=== PATIENT | female | born 1995 | race Caucasian/White ===

== ENCOUNTER 2018-09-20 08:24 | Inpatient (IN) ==
[2018-09-20] MEDS ORDERED: NS 1,000 ML IV ONE ×2 (08:51→10:33)
[2018-09-20] MEDS ORDERED: HUMULIN R IV ONE (08:52)
[2018-09-20 09:05] LABS: BE -11.6 mmoll (-3.0-3.0); HCO3-(ACT) 14.7 mmoll (20.0-26.0); PCO2(98.6) 36 mmHg (35-45); SAMPLE BLOOD
[2018-09-20 09:07] LABS: ALLEN TEST NO; BLOOD TYPE VENOUS; MODALITY ROOM AIR
[2018-09-20 09:08] LABS: PO2(98.6) 34 mmHg (60-100)
[2018-09-20 09:09] LABS: pH(98.6) 7.23 (7.35-7.45)
[2018-09-20 09:16] LABS: URINE SOURCE CLEAN CATCH
[2018-09-20 09:21] LABS: BASO# 0.06 X1000 (0.0-0.2); BASO% 0.5 % (0.0-0.8); EOS# 1.11 X1000 (0.0-0.7); EOS% 9.7 % (0.0-10.0); HEMATOCRIT 43.2 % (37.0-47.0); IMM GRAN# 0.03 X1000 (0.0-0.04); IMM GRAN% 0.3 % (0.0-0.5); LYMPH# 2.57 X1000 (1.2-3.4); LYMPH% 22.5 % (20.5-51.1); MCHC 32.4 g/dL (33-37); MCV 92.7 FL (81-99); MONO# 0.71 X1000 (0.11-0.59); MONO% 6.2 % (1.7-9.3); MPV 11.2 FL (7.4-10.4); NEUT# 6.93 X1000 (1.4-6.5); NEUT% 60.8 % (42.2-75.2); PLT 398 X1000 (130-400); RBC 4.66 XMIL (4.2-5.4); RDW 12.3 % (11.5-14.5); WBC 11.41 X1000 (4.8-10.8)
--- NOTE | 2018-09-20 09:21 | Diag Imaging Result Doc PS360 ---
EXAM: CHEST-2 VIEWS 09/20/2018 HISTORY: DKA TECHNIQUE: PA and lateral chest COMMENT: There is no evidence of acute cardiac or pulmonary disease. There are no previous studies available for comparison. IMPRESSION: No acute disease. Electronically signed by Gerardo Starr 09/20/2018 9:19 AM
[2018-09-20 09:22] LABS: BILIRUBIN URINE NEGATIVE (NEGATIVE); BLOOD URINE TRACE (NEGATIVE); COLOR STRAW; GLUCOSE URINE >1000 mg/dL (NEGATIVE); KETONE URINE >150 mg/dL (NEGATIVE); LEUKOCYTES URINE NEGATIVE (NEGATIVE); NITRITE URINE NEGATIVE (NEGATIVE); PROTEIN URINE NEGATIVE (NEGATIVE); SP GRAVITY URINE 1.022; TURBIDITY URINE CLEAR (CLEAR); UROBILINOGEN URINE NORMAL (NORMAL)
[2018-09-20 09:24] LABS: UR EPITHELIAL CELLS <10 /HPF (<10); URINE BACTERIA 2+ /HPF; URINE RBC <10 /HPF (<10); URINE WBC <10 /HPF (<10)
[2018-09-20] MEDS ORDERED: ZOFRAN ONE (09:29)
[2018-09-20 09:48] LABS: ALBUMIN 3.9 g/dL (3.5-5.0); CALCIUM 9.9 mg/dL (8.8-10.2); CREATININE 1.2 mg/dL (0.5-0.9); TOTAL BILIRUBIN 0.36 mg/dL (0.20-1.00); TOTAL PROTEIN 7.8 g/dL (6.3-8.3)
[2018-09-20] MEDS ORDERED: ZOFRAN IV ONE (10:33)
--- NOTE | 2018-09-20 10:37 | PROVIDER DOCUMENTATION ---
HPI-General Adult - General Chief Complaint: High Blood Sugar Stated Complaint: SUGAR PROBLEM Time Seen by Provider: 09/20/18 08:46 Source: patient - History of Present Illness -Gen Adult Nature of Presenting Problems: Patient is a 23 yowf who complains of BS > 500 and n/v since Monday. Hx of DM Type 1. Denies abdominal pain or fever. Location of Pain/Injury: reports: none Quality of Pain: reports: none Onset/Duration: reports: 4 days ago Timing: reports: still present Context/Activities at Onset: reports: none Similar Symptoms Previously?: No Review of Systems - Adult - REVIEW OF SYSTEMS - ADULT Constitutional: denies: chills, fever Eyes: reports: no symptoms reported Ears, Nose, Mouth & Throat: reports: no symptoms reported Cardiovascular: reports: no symptoms reported Respiratory: reports: no symptoms reported Gastrointestinal: reports: nausea, vomiting. denies: abdominal pain, diarrhea Genitourinary: reports: other (polyuria) Musculoskeletal: reports: no symptoms reported Integumentary: reports: no symptoms reported Neurological: reports: no symptoms reported Psychiatric: reports: no symptoms reported Endocrine: reports: no symptoms reported Hematologic/Lymphatic: reports: no symptoms reported Allergic/Immunologic: reports: no symptoms reported All Other Systems: Reviewed and Negative Past History - Adult - PAST MEDICAL HISTORY-ADULT Review of Records: reports: Old Records Reviewed, Nursing Assessment Review, Medications Reviewed, Social history reviewed & non-contributory. Major Childhood Illnesses: reports: other (DM Type 1) Cardiovascular: reports: denies history Respiratory: reports: denies history Gastrointestinal: reports: denies history Obstetrical/Gynecological: reports: denies history Genitourinary: reports: denies history Musculoskeletal: reports: denies history Neurological: reports: denies history Psychiatric: reports: denies history Endocrine/Immune: reports: Diabetes Diabetes Type: Type 1 Diabetes controlled by:: Insulin Dependent Other Conditions: reports: denies history - PRIOR SURGERIES/PROCEDURES Surgical/Procedure History: reports: reviewed, not pertinent - FAMILY HISTORY Family History: reviewed, not pertinent - SOCIAL HISTORY Smoking: cigarettes, less than 1 pack/day Physical Exam-General - PHYSICAL EXAM-ADULT Initial Vital Signs Reviewed: Yes - CONSTITUTIONAL General Appearance: moderate distress. negative: lethargic, slow to respond - EYES Eyes: PERRL/EOMI, pink conjunctivae. negative: sclera injected, scleral icterus , sunken eyes - HEAD, EARS, NOSE, MOUTH & THROAT HENMT: normocephalic/atraumatic, moist mucous membranes - NECK Neck: non-tender, full range of motion, supple, normal inspection. negative: lymphadenopathy - RESPIRATORY Respiratory: chest non-tender, lungs clear, normal breath sounds, no pleuratic chest pain, no respiratory distress, no accessory muscle use - CARDIOVASCULAR Cardiovascular: normal peripheral pulses, regular rate, rhythm, no gallop, no murmur - GASTROINTESTINAL (ABDOMEN) Abdominal Exam: normal bowel sounds, soft, no organomegaly, tenderness (Diffuse) . negative: hernia, mass, McBurney's point tenderness - LYMPHATIC Lymphatic: no adenopathy - MUSCULOSKELETAL Back Exam: normal inspection, no CVA tenderness Extremity: normal range of motion, non-tender, normal gait, normal inspection - SKIN Integumentary: normal color, warm/dry. negative: cyanosis, diaphoresis, jaundice, mottled, pallor - NEUROLOGIC Neurologic: grossly normal, no motor/sensory deficits - PSYCHIATRIC Psych/Mental Status: normal mood/affect, normal thought content, normal thought process, oriented x 3 Progress - PLAN OF CARE/RESULTS Progress/Plan/Lab Results: Vital Signs - 8 hr 09/20/18 08:27 Temperature 98.9 F Pulse Rate 122 H Respiratory Rate 18 Blood Pressure 120/61 O2 Sat by Pulse Oximetry 100 Bedside Urine ED: Urine Bedside Start: 09/20/18 09:15 Freq: Status: Active Protocol: Activity Type Activity Date Activity User E-Sign Co-Sign Detail Recorded Client Recorded Date Recorded By Document 09/20/18 09:16 [id number] 09/20/18 09:16 [id number] 09/20/18 09:16 Point of Care [Bedside Point of Care] -Lot # hcg - Results Negative -Control Line Visible? Yes Laboratory Results - last 24 hr 09/20/18 09/20/18 09/20/18 08:29 08:54 09:00 WBC RBC Hgb Hct MCV MCH MCHC RDW Std Deviation Plt Count MPV Immature Gran % (Auto) Neut % (Auto) Lymph % (Auto) [place] % (Auto) Eos % (Auto) Baso % (Auto) Immature Gran # (Auto) Neut # (Auto) Lymph # (Auto) [place] # (Auto) Eos # (Auto) Baso # (Auto) Specimen Type VENOUS pH 7.23 L pCO2 36 pO2 34 L* HCO3 14.7 L Base Excess -11.6 L Matthew Test NO Lactate 2.80 H Blood Gas Modality ROOM AIR Sodium Potassium Chloride Carbon Dioxide Anion Gap BUN Creatinine Estimated GFR/1.73 m2 BUN/Creatinine Ratio Glucose POC Glucose 500 H Calculated Osmolality Calcium Total Bilirubin AST ALT Alkaline Phosphatase Total Protein Albumin Globulin Albumin/Globulin Ratio Urine Source CLEAN CATCH Urine Color STRAW Urine Turbidity CLEAR Urine pH 5.0 Ur Specific [place] 1.022 Urine Protein NEGATIVE Ur Glucose (Stick) >1000 A Ur Ketones (Stick) >150 Urine Blood TRACE A Urine Nitrite NEGATIVE Urine Bilirubin NEGATIVE Urobilinogen Dipstick NORMAL Urine Leukocytes NEGATIVE Urine WBC (Auto) <10 Urine RBC (Auto) <10 U Epithel Cells (Auto) <10 Urine Bacteria (Auto) 2+ 09/20/18 09/20/18 09:05 09:05 WBC 11.41 H RBC 4.66 Hgb 14.0 Hct 43.2 MCV 92.7 MCH 30.0 MCHC 32.4 L RDW Std Deviation 12.3 Plt Count 398 MPV 11.2 H Immature Gran % (Auto) 0.3 Neut % (Auto) 60.8 Lymph % (Auto) 22.5 [place] % (Auto) 6.2 Eos % (Auto) 9.7 Baso % (Auto) 0.5 Immature Gran # (Auto) 0.03 Neut # (Auto) 6.93 H Lymph # (Auto) 2.57 [place] # (Auto) 0.71 H Eos # (Auto) 1.11 H Baso # (Auto) 0.06 Specimen Type pH pCO2 pO2 HCO3 Base Excess Matthew Test Lactate Blood Gas Modality Sodium 131 L Potassium 5.0 Chloride 84 L Carbon Dioxide 13 L Anion Gap 34 BUN 14 Creatinine 1.2 H Estimated GFR/1.73 m2 55 BUN/Creatinine Ratio 12 Glucose 724 H* POC Glucose Calculated Osmolality 298 Calcium 9.9 Total Bilirubin 0.36 AST 49 H ALT 38 H Alkaline Phosphatase 211 H Total Protein 7.8 Albumin 3.9 Globulin 3.9 Albumin/Globulin Ratio 1.0 Urine Source Urine Color Urine Turbidity Urine pH Ur Specific [place] Urine Protein Ur Glucose (Stick) Ur Ketones (Stick) Urine Blood Urine Nitrite Urine Bilirubin Urobilinogen Dipstick Urine Leukocytes Urine WBC (Auto) Urine RBC (Auto) U Epithel Cells (Auto) Urine Bacteria (Auto) Orders Category Date Time Status Cardiac Monitoring DIRECTED Care 09/20/18 10:33 Ordered Saline Loc NOW Care 09/20/18 08:51 Active Vital Signs Order Q30M Care 09/20/18 10:34 Ordered CHEST-2 VIEWS [RAD] Stat Exams 09/20/18 08:51 Completed ABG [RESP] Routine Lab 09/20/18 08:54 Completed ACETONE SERUM [CHEM] Stat Lab 09/20/18 10:33 Uncollected CBC WITH ELECTRONIC DIFF [HEME] Stat Lab 09/20/18 09:05 Completed COMPREHENSIVE METABOLIC PANEL [CHEM] Stat Lab 09/20/18 09:05 Completed LACTATE, PLASMA [CHEM] Stat Lab 09/20/18 09:17 Ordered TEST-URINE [PREG] Stat Lab 09/20/18 10:33 Uncollected URINALYSIS [URINALYSIS] Stat Lab 09/20/18 09:00 Completed 0.9% Sodium Chloride Inj [Ns] 1,000 ml Med 09/20/18 08:51 Discontinued IV 999 mls/hr Insulin Human Regular [Humulin R] Med 09/20/18 08:52 Discontinued 10 unit IV NOW ONE Ns 1000 ml IV Bolus X1 Med 09/20/18 10:33 Ordered 0.9% Sodium Chloride Inj [Ns] 1,000 ml IV 999 mls/hr Ondansetron [Zofran] Med 09/20/18 09:29 Discontinued 4 mg .ROUTE .STK-MED ONE Ondansetron [Zofran] Med 09/20/18 10:33 Once 4 mg IV NOW ONE Discussed results and admission plan with pt who is in agreement. She refused ABG. Spoke with LY Steen SURVEY RESEARCH ANALYST who accepted admission. Result Diagrams: 09/20/18 09:05 09/20/18 09:05 - CONSULTS/PCP/HOSPITALIST Notification #1 *Consult/PCP/Hospitalist*: LY Hernandez SURVEY RESEARCH ANALYST Time Discussed: 10:37 Consult Disposition: Will see in ED (No further recommended orders at this time) , Admit Departure - Departure Date of Disposition Decision: 09/20/18 Time of Disposition Decision: 11:15 DIAGNOSIS: DKA (diabetic ketoacidosis) Qualifiers: Diabetes mellitus type: type 1 Diabetes mellitus complication detail: without coma Qualified Code(s): E10.10 - Type 1 diabetes mellitus with ketoacidosis without coma Diabetes Qualifiers: Diabetes mellitus type: type 1 Diabetes mellitus complication status: with unspecified complications Qualified Code(s): E10.8 - Type 1 diabetes mellitus with unspecified complications Disposition: ADMITTED INPATIENT 09 Certified Medical Emergency: Emergent Condition: Stable - Critical Care Note This patient required my direct & personal management of CC.: No Attestation - Physician/ ANNELIESE Attestation Patient care was provided by Advanced Practice Provider:: Yes Advanced Practice Provider:: Marry Rasheed Advanced Practice Provider documentation review:: The Mid-level provider documentation, treatment plan and medical decision making was reviewed by the physician who agrees with all treatment and medical decision making by the MLP. The physician spent face to face time with patient:: No Advanced Practice Provider documentation review:: Supervising physician onsite and consulted in the evaluation and care of this patient. The physician did not have a face to face encounter with the patient.
[2018-09-20] MEDS ORDERED: TYLENOL PO PRN (10:41)
[2018-09-20] MEDS ORDERED: ZOFRAN IV PRN (10:41)
[2018-09-20] MEDS ORDERED: POTASSIUM CHLORIDE 20 MEQ/SWI 20 MEQ/100 ML IVPB IV PRN (11:59)
[2018-09-20] MEDS ORDERED: SODIUM BICARBONATE 8.4% 100 MEQ in D5W 500 ML IV PRN (11:59)
[2018-09-20] MEDS ORDERED: D5 NS 1,000 ML IV SCH (11:59)
[2018-09-20] MEDS ORDERED: COMPAZINE PO PRN (11:59)
[2018-09-20] MEDS ORDERED: D50W SYRINGE IV PRN (11:59)
[2018-09-20] MEDS ORDERED: POTASSIUM CHLORIDE 10% LIQUID PO PRN (11:59)
[2018-09-20] MEDS ORDERED: POTASSIUM CHLORIDE 20% LIQUID PO PRN (11:59)
[2018-09-20] MEDS ORDERED: SODIUM PHOSPHATE 30 MMOL in D5W 250 ML IV PRN (11:59)
[2018-09-20] MEDS ORDERED: POTASSIUM CHLORIDE 40 MEQ/SWI 40 MEQ/100 ML IVPB IV PRN (11:59)
[2018-09-20] MEDS ORDERED: SODIUM BICARBONATE 8.4% 50 MEQ in D5W 250 ML IV PRN (11:59)
[2018-09-20] MEDS ORDERED: COMPAZINE PR PRN (11:59)
[2018-09-20] MEDS ORDERED: MAGNESIUM SULFATE 2 GM/S.W.I. 2 GM/50 ML IVPB IV PRN (11:59)
[2018-09-20] MEDS ORDERED: COMPAZINE IV PRN (11:59)
[2018-09-20] MEDS: NS 1,000 ML IV SCH ×5 (11:59→23:00)
--- NOTE | 2018-09-20 12:36 | HISTORY AND PHYSICAL ---
HISTORY OF PRESENT ILLNESS: Ms. Davalos's past medical history, she has diabetes mellitus type 1, which she has had for several years. She has had some issues with tachycardia and a nonsignificant arrhythmia. She has have endometriosis. I think she has had laparoscopic laser surgery on that, still suffers from some pain with endometriosis and dysmenorrhea, and then anxiety and depression. SURGICAL HISTORY: I think she has had laparoscopic surgery for endometriosis. She had wisdom teeth removed, and I think she has had a vaginal hysterectomy. SOCIAL HISTORY: Less than a pack per day for about a year. Rare ethanol. No illicit drugs. FAMILY HISTORY: Mother with diabetes mellitus type 1, and history of myocardial infarction. Father with high cholesterol. ALLERGIES: She has no known drug allergies. She presented with almost a week of feeling bad with nausea. They have been adjusting her medications. Her general practitioner is Enmanuel Cameron, and then Mere Andrea is her senior producer in [place]. She denies fever. REVIEW OF SYSTEMS: Denies fever or chills. Denies any new rashes or joint pain. No neck pain or adenopathy. She has had no chest pain or tachy palpitation.Respiratory: No increased work of breathing or dyspnea. No cough or sputum production. Endocrinologic/hematologic: She has got diabetes mellitus type 1 and is on insulin. PHYSICAL EXAMINATION: GENERAL: She remains afebrile. Temperature 98.9 degrees, pulse 122 respirations 18, blood pressure 120/61. PUPILS: Are equal and round. LUNGS: Clear in all lung hyde. CARDIOVASCULAR: Regular rhythm and rate without murmur or S3. ABDOMEN: Soft. SKIN: Warm and dry. HEENT: Weight is 157 pounds. Height 5 feet 4 inches. No cervical or periauricular adenopathy. Conjunctiva are pink. Mucous membranes moist. Oral and nasal mucosa unremarkable. NECK: Supple. No thyromegaly. Carotid, radial, and femoral pulses 2+ and symmetrical. CVP less than 6 cm. LUNGS: Clear anterolateral and posterior. CARDIOVASCULAR: Regular rate without murmur or S3. ABDOMEN: Without any organomegaly. No ascites. SKIN: Warm and dry. LAB: White count 11,410, hematocrit is 43, platelet count 398,000. Sodium 131, potassium 5.0, chloride 84, bicarb 13, BUN 14, creatinine 1.2. Serum blood sugar was 724 when she came in. Albumin 3.9. Urinalysis: 2+ bacteria. Otherwise unremarkable. Blood gas: pH is 7.23, pCO2 36, pO2 is 34. Her lactate level is 2.8. Acetone level is small. Chest x-ray: No acute disease. No infiltrate. ASSESSMENT AND PLAN: Ketoacidosis. This is fairly mild. Her bicarb is 13. PH is 7.23. We will start her on diabetic protocol, give her fluids, and giving her insulin and following her electrolytes closely, supplementing potassium and magnesium, as we need to. She is still nauseated. We will let her have liquids for now. When sugars come down below 200, we will see if she is hungry and advance her diet. See if we can adjust her insulin. She would like to keep the senior producer in the loop, and will try and send notes over to Dr. Mere Andrea. I see no sign of infection. cc: Matthew Bains MD
[2018-09-20] MEDS: HUMULIN R 100 UNIT in NS 99 ML IV SCH ×6 (13:56→21:20)
[2018-09-20 14:16] LABS: HEMOGLOBIN A1C 9.8 % (4.8-6.0)
[2018-09-20 14:31] LABS: AMYLASE 55 U/L (20-200); CHOLESTEROL 183 mg/dL (0-200); CK PROFILE 38 U/L (24-173); HDL 44 mg/dL (45-65); LDL 71 mg/dL; LIPASE 63 U/L (13-60); MAGNESIUM 1.8 mg/dL (1.5-2.7); PHOSPHORUS 4.3 mg/dL (2.7-4.5); TRIGLYCERIDES 342 mg/dL (35-135); VLDL 68 mg/dL
[2018-09-20 14:37] LABS: ACETONE SERUM LARGE (NEGATIVE)
[2018-09-20 14:47] LABS: AGAP 33; BUN 13 mg/dL (8-22); CALCIUM 8.3 mg/dL (8.8-10.2); CHLORIDE 90 mmol/L (98-107); COSMO 296; ESTIMATED GFR > 60; POTASSIUM 4.4 mmol/L (3.5-5.1); SODIUM 132 mmol/L (136-145); TCO2 9 mmol/L (25-35)
[2018-09-20 14:52] LABS: GLUCOSE 674 mg/dL (70-104)
[2018-09-20 16:04] LABS: UR AMPHETAMINES QUAL PRESUMPTIVE POSITIVE (NONE DETECT); UR BARBITUATES QUAL NONE DETECTED (NONE DETECT); UR BENZODIAZEPIN QUAL NONE DETECTED (NONE DETECT); UR CANNABINOIDS QUAL NONE DETECTED (NONE DETECT); UR COCAINE QUAL NONE DETECTED (NONE DETECT); UR METHADONE QUAL NONE DETECTED (NONE DETECT); UR OPIATES QUAL NONE DETECTED (NONE DETECT); UR OXYCODONE QUAL NONE DETECTED (NONE DETECT); UR PCP QUAL NONE DETECTED (NONE DETECT)
[2018-09-20 18:18] LABS: BE -7.4 mmoll (-2.0-2.0); BLOOD TYPE VENOUS; HCO3-(ACT) 19.1 mmoll (22-27); PCO2(98.6) 23 mmHg (40-60); PO2(98.6) 115 mmHg (30-55); SAMPLE BLOOD; SAO2 96.9 % (40.0-85.0); pH(98.6) 7.43 (7.32-7.43)
[2018-09-20 18:25] LABS: ESTIMATED GFR > 60
[2018-09-20 18:30] LABS: AGAP 16; BUN 9 mg/dL (8-22); CHLORIDE 102 mmol/L (98-107); COSMO 270; CREATININE 0.8 mg/dL (0.5-0.9); GLUCOSE 189 mg/dL (70-104); POTASSIUM 4.3 mmol/L (3.5-5.1); SODIUM 133 mmol/L (136-145); TCO2 15 mmol/L (25-35)
[2018-09-20 18:38] LABS: MAGNESIUM 1.5 mg/dL (1.5-2.7); PHOSPHORUS 2.4 mg/dL (2.7-4.5)
[2018-09-20 20:33] LABS: BE -5.2 mmoll (-2.0-2.0); BLOOD TYPE VENOUS; HCO3-(ACT) 20.8 mmoll (22-27); PCO2(98.6) 32 mmHg (40-60); PO2(98.6) 77 mmHg (30-55); SAMPLE BLOOD; pH(98.6) 7.38 (7.32-7.43)
[2018-09-20 21:34] LABS: BE -3.9 mmoll (-2.0-2.0); BLOOD TYPE VENOUS; HCO3-(ACT) 21.8 mmoll (22-27); PCO2(98.6) 30 mmHg (40-60); PO2(98.6) 79 mmHg (30-55); SAMPLE BLOOD; pH(98.6) 7.42 (7.32-7.43)
[2018-09-20 21:46] LABS: MAGNESIUM 1.6 mg/dL (1.5-2.7); PHOSPHORUS 2.3 mg/dL (2.7-4.5)
[2018-09-20 21:54] LABS: AGAP 10; BUN 7 mg/dL (8-22); CALCIUM 8.4 mg/dL (8.8-10.2); CHLORIDE 103 mmol/L (98-107); COSMO 265; CREATININE 0.8 mg/dL (0.5-0.9); ESTIMATED GFR > 60; GLUCOSE 108 mg/dL (70-104); POTASSIUM 3.3 mmol/L (3.5-5.1); SODIUM 133 mmol/L (136-145); TCO2 20 mmol/L (25-35)
[2018-09-20] MEDS ORDERED: D50W SYRINGE IV ONE (23:11)
[2018-09-20] MEDS ORDERED: HUMULIN R SUBQ SCH (23:15)
[2018-09-21] MEDS: HUMULIN R SUBQ SCH ×4 (03:44→16:31)
[2018-09-21 05:51] LABS: BASO# 0.04 X1000 (0.0-0.2); BASO% 0.4 % (0.0-0.8); EOS% 9.1 % (0.0-10.0); HEMATOCRIT 36.3 % (37.0-47.0); LYMPH# 4.21 X1000 (1.2-3.4); LYMPH% 38.2 % (20.5-51.1); MCH 30.6 PG (27-31); MCHC 33.1 g/dL (33-37); MCV 92.6 FL (81-99); MONO# 0.87 X1000 (0.11-0.59); MONO% 7.9 % (1.7-9.3); MPV 10.4 FL (7.4-10.4); NEUT# 4.89 X1000 (1.4-6.5); NEUT% 44.4 % (42.2-75.2); PLT 340 X1000 (130-400); RBC 3.92 XMIL (4.2-5.4); WBC 11.01 X1000 (4.8-10.8)
[2018-09-21 06:00] LABS: INR 0.92; PROTIME 13.1 Seconds (11.0-16.0)
[2018-09-21 06:01] LABS: PTT 22.9 Seconds (22.3-41.8)
[2018-09-21] MEDS: NS 1,000 ML IV SCH ×2 (06:10→14:49)
[2018-09-21 06:18] LABS: AGAP 13; ALBUMIN 3.1 g/dL (3.5-5.0); ALKALINE PHOSPHATASE 155 U/L (32-104); BUN 5 mg/dL (8-22); CALCIUM 8.4 mg/dL (8.8-10.2); CHLORIDE 107 mmol/L (98-107); COSMO 272; CREATININE 0.6 mg/dL (0.5-0.9); ESTIMATED GFR > 60; GLUCOSE 116 mg/dL (70-104); GOT 26 U/L (10-30); GPT 24 U/L (10-36); MAGNESIUM 1.8 mg/dL (1.5-2.7); POTASSIUM 4.1 mmol/L (3.5-5.1); SODIUM 137 mmol/L (136-145); TCO2 17 mmol/L (25-35); TOTAL BILIRUBIN 0.18 mg/dL (0.20-1.00); TOTAL PROTEIN 6.3 g/dL (6.3-8.3)
--- NOTE | 2018-09-21 07:48 | EKG Report ---
Test Performed on : 09/21/2018 06:46:01 AM Test Reason : dka Blood Pressure : / mmHG Vent. Rate : 102 BPM Atrial Rate : 102 BPM P-R Int : 128 ms QRS Dur : 084 ms QT Int : 392 ms P-R-T Axes : 057 053 -15 degrees QTc Int : 510 ms Sinus tachycardia. Nonspecific T wave abnormality Abnormal ECG When compared with ECG of 21-SEP-2018 06:45, (Unconfirmed) No significant change was found Confirmed by Jaleel GIL, Julius Amador ([id number]) on 09/21/2018 9:21:05 PM
--- NOTE | 2018-09-21 08:57 | PROGRESS NOTE ---
DATE: 09/21/2018 SUBJECTIVE: Ms. Davalos has had a good night. She is eating some breakfast and feeling much better. OBJECTIVE: Vital Signs: Temperature 98.5 degrees, pulse 100, respirations 16, blood pressure 107/74. Eyes: Pupils are equal and round. Lungs: Clear in all lung hyde. Cardiovascular Exam: Regular rhythm and rate without murmur or S3. Abdomen: Soft. Skin: Warm and dry. : Urine output is 2400 mL. LAB: Reviewed from yesterday: White count 11,000, hemoglobin 10, hematocrit 36, platelet count 340,000. Sodium 137, potassium 4.1. BUN 5, creatinine 0.6, bicarbonate was 13. Her blood gas from yesterday reveals pH is back up to 742. X-RAY: Chest x-ray: No acute disease or infiltrate. ASSESSMENT AND PLAN: Diabetic ketoacidosis. Type 1 diabetes mellitus. Acidosis seemed to be resolving. She is eating. We will put her on a diabetic diet and see how we do today and make sure she has her insulin. I am going to check another basic metabolic profile and a magnesium later on this afternoon, and hopefully she can go home. cc: Matthew Bains MD
[2018-09-21 14:30] LABS: AGAP 16; BUN 5 mg/dL (8-22); CALCIUM 8.2 mg/dL (8.8-10.2); CHLORIDE 101 mmol/L (98-107); COSMO 277; CREATININE 0.8 mg/dL (0.5-0.9); ESTIMATED GFR > 60; GLUCOSE 273 mg/dL (70-104); MAGNESIUM 1.6 mg/dL (1.5-2.7); POTASSIUM 3.9 mmol/L (3.5-5.1); SODIUM 135 mmol/L (136-145); TCO2 18 mmol/L (25-35)
--- NOTE | 2018-09-21 16:43 | DISCHARGE SUMMARY ---
ADMISSION DATE: 09/20/2018 DISCHARGE DATE: 09/21/2018 HISTORY AND HOSPITAL COURSE: She felt much better. She is followed by Dr. Kehinde Cameron. She has had diabetes mellitus type 1, and they have recently been trying to change up some of her insulin. Her only other past medical history is she has endometriosis. She has had laparoscopic laser surgery on that. Still some dysmenorrhea. I believe she has had a vaginal hysterectomy too by report. She presented with mild diabetic ketoacidosis, and so we put her on fluids. Her bicarbonate was 13. Her arterial pH was 7.23, and she seemed to improve fairly quickly. Her bicarbonate coming up to 18 and creatinine is 0.8. She was able to eat diabetic diet, and we put her on her insulin. She has Lantus at home, and she uses with every meal Humulin insulin regular and adjusts for her grams intake, so I will discharge her home on SoloSTAR, which is insulin glargine, at 22 units every night at bedtime and then her usual insulin with meals. She does take Adderall XR 30 mg a day. I do not think she has been taking it recently. She uses her flash glucose sensor, which is FreeStyle Ronnie, which is appropriate, and she can take her amitriptyline 25 mg every night. She is to follow up with her doctor and e learning developer next week. I will discharge her home. cc: Matthew Bains MD
[2018-09-21 17:02] VITALS: BP 136/82
== END 2018-09-21 17:26 | disposition home or self-care (01) | DRG 639 ==
LOC: ED 08:24 → EDIPHOLD 11:02 → 3S 22:49
PROVIDERS: ATTEND Emergency Medicine
CPT/HCPCS: 71020; 71046; 80048; 80053; 80061; 80101; 80301; 80307; 80324; 80345; 80346; 80353; 80358; 80361; 80365; 81001; 81025; 82009; 82150; 82550; 82805; 82948; 83036; 83605; 83690; 83735; 83992; 84100; 84443; 84484; 84703; 85025; 85610; 85730; 87040; 93005; 93010; 96361; 96365; 96366; 96367; 96375; 99285; A9270; G0431; G0434; G0479; G0480; J0780; J2405; J3475; J7030; J7042; S0183; XXXXX

== ENCOUNTER 2019-04-10 14:39 | Inpatient (IN) ==
[2019-04-10] MEDS ORDERED: NS 1,000 ML IV ONE ×2 (14:51→16:19)
[2019-04-10] MEDS ORDERED: ZOFRAN IV ONE (14:57)
--- NOTE | 2019-04-10 15:05 | PROVIDER DOCUMENTATION ---
HPI-General Adult - General Chief Complaint: High Blood Sugar Stated Complaint: SOB,DIABETIC Time Seen by Provider: 04/10/19 14:44 Source: patient Allergies/Adverse Reactions: Patient Allergies Allergy/AdvReac Type Severity Reaction Status Date / Time No Known Allergies Allergy Verified 04/10/19 15:12 Home Medications: Home Medication List Medication Instructions Recorded Confirmed Last Taken Type Amitriptyline HCl 25 mg PO DAILY 09/20/18 04/10/19 09/19/18 History Dextroamphetamine/Amphetamine 1 tab PO DAILY 09/20/18 04/10/19 09/19/18 History [Adderall Xr 30 mg Capsule] Flash Glucose Sensor [Freestyle 1 tab PO ORDERED 09/20/18 04/10/19 Unknown History Ronnie 14 Day Sensor] Insulin Glargine,Hum.rec.anlog 22 units SQ QHS 04/10/19 04/10/19 Unknown History [Toujeo Solostar] Insulin Lispro [Humalog] 1 dose SQ ORDERED 04/10/19 04/10/19 Unknown History Norgestimate-Ethinyl Estradiol 1 tab PO DAILY 04/10/19 04/10/19 Unknown History [Vmz-Ae-Wwqxceahc Tablet] Spironolactone 25 mg PO DAILY 04/10/19 04/10/19 Unknown History - History of Present Illness -Gen Adult Nature of Presenting Problems: Patient is a 23yo F who presents with complaints of BG > 500, nausea/vomiting, heartburn, decreased appetite, and dehydration x5 days. Patient reports she is a Type 1 Diabetic with past hx of hospitalizations for DKA. Patient also reports this morning at 0430 she awoke with SOB, dry cough, and hyperventilating. States when she checked her BG this morning at 0430, her meter read "high" and she took 12 units of Insulin. Reports she rechecked at 1230, which was also "high," and took another 16 units. Denies fever/chills, abdominal pain, diarrhea, dysuria, or CP. Patient alert and oriented x3. Upon examination, patient is tachypneic and dyspneic. Onset/Duration: reports: 5 days ago Timing: reports: still present Context/Activities at Onset: reports: none Modifying Factors: improves with: nothing Associated Symptoms: reports: cough (dry), heartburn, nausea, shortness of breath, vomiting, weakness. denies: chest pain, fever/chills Similar Symptoms Previously?: Yes (hx of DKA) Recently seen or treated by another doctor?: No - Diabetes Related Context Context: reports: high blood sugar, prior DKA hospitalization Review of Systems - Adult - REVIEW OF SYSTEMS - ADULT Constitutional: reports: no symptoms reported. denies: chills, fever Eyes: reports: no symptoms reported Ears, Nose, Mouth & Throat: reports: no symptoms reported Cardiovascular: reports: see HPI, other (tachycardia). denies: chest pain Respiratory: reports: see HPI, cough, dyspnea on exertion (dry), shortness of breath. denies: wheezing Gastrointestinal: reports: see HPI, frequent heartburn, nausea, poor appetite, vomiting. denies: abdominal pain, diarrhea Genitourinary: reports: no symptoms reported. denies: dysuria Musculoskeletal: reports: no symptoms reported Integumentary: reports: no symptoms reported Neurological: reports: no symptoms reported. denies: dizziness/vertigo, headache/migraines Psychiatric: reports: no symptoms reported Endocrine: reports: no symptoms reported Past History - Adult - PAST MEDICAL HISTORY-ADULT Review of Records: reports: Nursing Assessment Review, Medications Reviewed, Social history reviewed & non-contributory. Major Childhood Illnesses: reports: other (DM Type 1) Cardiovascular: reports: denies history Respiratory: reports: denies history Gastrointestinal: reports: denies history Obstetrical/Gynecological: reports: denies history Genitourinary: reports: denies history Musculoskeletal: reports: denies history Neurological: reports: denies history Psychiatric: reports: denies history Endocrine/Immune: reports: Diabetes Other Conditions: reports: denies history - PRIOR SURGERIES/PROCEDURES Surgical/Procedure History: reports: reviewed, not pertinent - IMMUNIZATION STATUS Childhood Immunizations: See Nurse Assessment Flu Vaccine: See Nurse Assessment - FAMILY HISTORY Family History: reviewed, not pertinent Physical Exam-General - PHYSICAL EXAM-ADULT Initial Vital Signs Reviewed: Yes - CONSTITUTIONAL General Appearance: alert, moderate distress. negative: lethargic, slow to respond, obtunded - EYES Eyes: PERRL/EOMI, pink conjunctivae. negative: EOM palsy, scleral icterus - HEAD, EARS, NOSE, MOUTH & THROAT HENMT: normocephalic/atraumatic, moist mucous membranes - NECK Neck: full range of motion, supple, normal inspection - RESPIRATORY Respiratory: lungs clear, normal breath sounds, no pleuratic chest pain, no respiratory distress, no accessory muscle use, increased rate. negative: crackles, rales, rhonchi, stridor, wheezing, pain on inspiration, retractions, splinting - CARDIOVASCULAR Cardiovascular: tachycardia (138) - GASTROINTESTINAL (ABDOMEN) Abdominal Exam: normal bowel sounds, non tender, soft. negative: distended, guarding, rigid - MUSCULOSKELETAL Back Exam: normal inspection Extremity: normal range of motion, non-tender, normal gait, normal inspection - SKIN Integumentary: normal color, warm/dry. negative: cyanosis, jaundice - NEUROLOGIC Neurologic: grossly normal. negative: abnormal gait, aphasia, EOM palsy - PSYCHIATRIC Psych/Mental Status: normal mood/affect, normal thought content, normal thought process, oriented x 3 Progress - PLAN OF CARE/RESULTS Progress/Plan/Lab Results: Vital Signs - 8 hr 04/10/19 14:47 Temperature 97.6 F Pulse Rate 138 H Respiratory Rate 40 H Blood Pressure 120/84 O2 Sat by Pulse Oximetry 99 Laboratory Results - last 24 hr 04/10/19 14:47 POC Glucose 240 H D Orders Category Date Time Status Cardiac Monitoring DIRECTED Care 04/10/19 14:57 Ordered ED: Urine Bedside ORDERED Care 04/10/19 14:50 Active FSBS [Finger Stick Blood Sugar (ED)] DIRECTED Care 04/10/19 14:51 Active Nursing- Obtain EKG ONCE Care 04/10/19 14:57 Ordered Orthostatic Vital Signs NOW Care 04/10/19 14:51 Active Oxygen Therapy- ED Nursing DIRECTED Care 04/10/19 14:57 Ordered Saline Loc NOW Care 04/10/19 14:50 Active CHEST-1 VIEW [RAD] Stat Exams 04/10/19 14:57 Ordered ABG [RESP] Routine Lab 04/10/19 14:51 Stop Req ABG [RESP] Stat Lab 04/10/19 14:58 Ordered ACETONE SERUM [CHEM] Stat Lab 04/10/19 14:51 Uncollected CBC WITH ELECTRONIC DIFF [HEME] Stat Lab 04/10/19 14:50 Uncollected COMPREHENSIVE METABOLIC PANEL [CHEM] Stat Lab 04/10/19 14:50 Uncollected LACTATE, PLASMA [CHEM] Stat Lab 04/10/19 14:50 Uncollected URINALYSIS W/POSS RFLX CULT [URINALYSIS] Stat Lab 04/10/19 14:51 Uncollected 0.9% Sodium Chloride Inj [Ns] 1,000 ml Med 04/10/19 14:51 Active IV 999 mls/hr Ondansetron [Zofran] Med 04/10/19 14:57 Once 4 mg IV NOW ONE EKG [EKG] Stat Ther 04/10/19 14:56 Ordered Patient meets SIRS criteria d/t tachycardia, tachypneia, and serum lactate 9.8 & ABG lactate 8.5. Per Sepsis protocol, serial lactates ordered, blood cultures obtained, 30ml/kg bolus ordered, and broad spectrum abx began. Patient's ABG (1557) does not indicate DKA with pH 7.38, CO2 20, HCO3 16, & O2 115. However, patient has large acetone level. Will treat as DKA. CT abdomen/pelvis ordered d/t elevated liver enzymes, nausea, and vomiting. Will call hospitalist for admission post CT results. Laboratory Tests 04/10/19 04/10/19 04/10/19 14:47 15:23 15:23 WBC 8.54 RBC 4.61 Hgb 14.2 Hct 42.3 MCV 91.8 MCH 30.8 MCHC 33.6 RDW Std Deviation 13.5 Plt Count 437 H MPV 10.6 H Immature Gran % (Auto) 0.2 Neut % (Auto) 50.8 Lymph % (Auto) 38.1 Hardeman % (Auto) 7.6 Eos % (Auto) 2.9 Baso % (Auto) 0.4 Immature Gran # (Auto) 0.02 Neut # (Auto) 4.34 Lymph # (Auto) 3.25 Hardeman # (Auto) 0.65 H Eos # (Auto) 0.25 Baso # (Auto) 0.03 Specimen Type Sample Site pH pCO2 pO2 HCO3 Base Excess Oxyhemoglobin ABG O2 Sat (Calculated) ABG O2 Saturation ABG Carboxyhemoglobin ABG Methemoglobin Matthew Test A-a O2 Difference Total Hemoglobin Lactate Blood Gas Modality FiO2 % Sodium 136 Potassium 4.1 Chloride 93 L Carbon Dioxide 9 L Anion Gap 34 BUN 10 Creatinine 1.2 H Estimated GFR/1.73 m2 55 BUN/Creatinine Ratio 8 Glucose 160 H POC Glucose 240 H D Calculated Osmolality 274 Calcium 9.9 Phosphorus 3.1 Magnesium 1.9 Total Bilirubin 0.28 AST 45 H ALT 53 H Alkaline Phosphatase 238 H Creatine Kinase 55 Troponin T Total Protein 7.5 Albumin 4.1 Globulin 3.4 Albumin/Globulin Ratio 1.2 Amylase 54 Lipase 24 Plasma Lactate Urine Source Urine Color Urine Turbidity Urine pH Ur Specific Baxter Urine Protein Ur Glucose (Stick) Ur Ketones (Stick) Urine Blood Urine Nitrite Urine Bilirubin Urobilinogen Dipstick Urine Leukocytes Urine WBC (Auto) Urine RBC (Auto) U Epithel Cells (Auto) Urine Bacteria (Auto) Acetone Level LARGE A 04/10/19 04/10/19 04/10/19 15:23 15:23 15:57 WBC RBC Hgb Hct MCV MCH MCHC RDW Std Deviation Plt Count MPV Immature Gran % (Auto) Neut % (Auto) Lymph % (Auto) Hardeman % (Auto) Eos % (Auto) Baso % (Auto) Immature Gran # (Auto) Neut # (Auto) Lymph # (Auto) Hardeman # (Auto) Eos # (Auto) Baso # (Auto) Specimen Type ARTERIAL Sample Site R BRACHIAL pH 7.38 pCO2 20 L pO2 115 H HCO3 16.3 L Base Excess -11.1 L Oxyhemoglobin 96.9 ABG O2 Sat (Calculated) 17.5 ABG O2 Saturation 99.1 ABG Carboxyhemoglobin 1.20 ABG Methemoglobin 1.0 Matthew Test NO A-a O2 Difference 10.0 Total Hemoglobin 12.7 Lactate 8.50 H* Blood Gas Modality ROOM AIR FiO2 % 21.0 Sodium Potassium Chloride Carbon Dioxide Anion Gap BUN Creatinine Estimated GFR/1.73 m2 BUN/Creatinine Ratio Glucose POC Glucose Calculated Osmolality Calcium Phosphorus Magnesium Total Bilirubin AST ALT Alkaline Phosphatase Creatine Kinase Troponin T < 0.010 Total Protein Albumin Globulin Albumin/Globulin Ratio Amylase Lipase Plasma Lactate 9.8 H* Urine Source Urine Color Urine Turbidity Urine pH Ur Specific Baxter Urine Protein Ur Glucose (Stick) Ur Ketones (Stick) Urine Blood Urine Nitrite Urine Bilirubin Urobilinogen Dipstick Urine Leukocytes Urine WBC (Auto) Urine RBC (Auto) U Epithel Cells (Auto) Urine Bacteria (Auto) Acetone Level 04/10/19 16:13 WBC RBC Hgb Hct MCV MCH MCHC RDW Std Deviation Plt Count MPV Immature Gran % (Auto) Neut % (Auto) Lymph % (Auto) Hardeman % (Auto) Eos % (Auto) Baso % (Auto) Immature Gran # (Auto) Neut # (Auto) Lymph # (Auto) Hardeman # (Auto) Eos # (Auto) Baso # (Auto) Specimen Type Sample Site pH pCO2 pO2 HCO3 Base Excess Oxyhemoglobin ABG O2 Sat (Calculated) ABG O2 Saturation ABG Carboxyhemoglobin ABG Methemoglobin Matthew Test A-a O2 Difference Total Hemoglobin Lactate Blood Gas Modality FiO2 % Sodium Potassium Chloride Carbon Dioxide Anion Gap BUN Creatinine Estimated GFR/1.73 m2 BUN/Creatinine Ratio Glucose POC Glucose Calculated Osmolality Calcium Phosphorus Magnesium Total Bilirubin AST ALT Alkaline Phosphatase Creatine Kinase Troponin T Total Protein Albumin Globulin Albumin/Globulin Ratio Amylase Lipase Plasma Lactate Urine Source CLEAN CATCH Urine Color YELLOW Urine Turbidity CLEAR Urine pH 5.5 Ur Specific Baxter 1.025 Urine Protein TRACE A Ur Glucose (Stick) >1000 A Ur Ketones (Stick) >150 Urine Blood TRACE A Urine Nitrite NEGATIVE Urine Bilirubin SMALL A Urobilinogen Dipstick 2 A Urine Leukocytes NEGATIVE Urine WBC (Auto) <10 Urine RBC (Auto) <10 U Epithel Cells (Auto) <10 Urine Bacteria (Auto) 2+ Acetone Level Discussed results and plan of care with patient. Patient agrees with plan and verbalizes understanding. Result Diagrams: 04/10/19 15:23 04/10/19 15:23 - EKG 1 Time of EKG reading by physician:: 15:08 EKG Read and Signed by:: Bennett Cochran EKG Interpretation (*Must complete 3 of following elements*): Abnormal Rate: 129 Rhythm: Sinus tachycardia Creole: normal QRS: normal [place] Interval: normal ST Wave: non-specific ST changes Comments: Nonspecific T wave abnormality, consider inferior/anterolateral ischemia - CONSULTS/PCP/HOSPITALIST Notification #1 *Consult/PCP/Hospitalist*: Jacqueline for Dr. Cain Time Discussed: 17:09 Reason/Comments: Admission Consult Disposition: Will see in ED, Admit - CHANGE OF SHIFT REPORT (ED Provider) 1 Report Given and Care Transferred to:: Valentín Castro Time of Transfer: 17:08 (Took over care of patient for brief period while initial provider was busy with a procedure and admitted. ) Items Pending: CT/MRI Results Departure - Departure Date of Disposition Decision: 04/10/19 Time of Disposition Decision: 17:09 DIAGNOSIS: Elevated serum lactate dehydrogenase DKA (diabetic ketoacidosis) Qualifiers: Diabetes mellitus type: type 1 Diabetes mellitus complication detail: without coma Qualified Code(s): E10.10 - Type 1 diabetes mellitus with ketoacidosis without coma Disposition: ADMITTED INPATIENT 09 Certified Medical Emergency: Emergent Condition: Stable Referrals and Follow-Ups: None,PCP [NON-STAFF PROVIDER] - - Critical Care Note This patient required my direct & personal management of CC.: Yes Total Time (mins): 36 Critical Care Statement: This patient required my direct personal management to treat or rule out processes, the absence of which, could potentiallly result in sudden, clinically significant life or limb threatening deterioration. Attestation - Physician/ ANNELIESE Attestation Patient care was provided by Advanced Practice Provider:: Yes Advanced Practice Provider:: Scarlett Leblanc Advanced Practice Provider documentation review:: The Mid-level provider documentation, treatment plan and medical decision making was reviewed by the physician who agrees with all treatment and medical decision making by the MLP. The physician spent face to face time with patient:: No Advanced Practice Provider documentation review:: Supervising physician onsite and consulted in the evaluation and care of this patient. The physician did not have a face to face encounter with the patient. - Physician/ ANNELIESE Attestation #2 Shift Change Time: 17:00 Patient care was provided by Advanced Practice Provider:: Yes Advanced Practice Provider:: Kristian Castro The physician spent face to face time with patient:: No Advanced Practice Provider documentation review:: Supervising physician onsite and consulted in the evaluation and care of this patient. The physician did not have a face to face encounter with the patient.
--- NOTE | 2019-04-10 15:05 | EKG Report ---
Test Performed on : 04/10/2019 3:05:37 PM Test Reason : SOB/CP Blood Pressure : / mmHG Vent. Rate : 129 BPM Atrial Rate : 129 BPM P-R Int : 122 ms QRS Dur : 084 ms QT Int : 314 ms P-R-T Axes : 067 054 258 degrees QTc Int : 460 ms Sinus tachycardia. T wave abnormality, consider inferior ischemia T wave abnormality, consider anterolateral ischemia Abnormal ECG When compared with ECG of 21-SEP-2018 06:46, T wave inversion more evident in Inferior leads Inverted T waves have replaced nonspecific T wave abnormality in Anterolateral leads Unconfirmed Result
[2019-04-10 15:33] LABS: BASO# 0.03 X1000 (0.0-0.2); BASO% 0.4 % (0.0-0.8); EOS# 0.25 X1000 (0.0-0.7); EOS% 2.9 % (0.0-10.0); HEMATOCRIT 42.3 % (37.0-47.0); HEMOGLOBIN 14.2 g/dL (12.0-16.0); IMM GRAN# 0.02 X1000 (0.0-0.04); IMM GRAN% 0.2 % (0.0-0.5); LYMPH# 3.25 X1000 (1.2-3.4); LYMPH% 38.1 % (20.5-51.1); MCH 30.8 PG (27-31); MCHC 33.6 g/dL (33-37); MCV 91.8 FL (81-99); MONO# 0.65 X1000 (0.11-0.59); MONO% 7.6 % (1.7-9.3); MPV 10.6 FL (7.4-10.4); NEUT# 4.34 X1000 (1.4-6.5); NEUT% 50.8 % (42.2-75.2); PLT 437 X1000 (130-400); RBC 4.61 XMIL (4.2-5.4); RDW 13.5 % (11.5-14.5); WBC 8.54 X1000 (4.8-10.8)
[2019-04-10] MEDS ORDERED: G.I. COCKTAIL PO ONE (15:47)
[2019-04-10 16:02] LABS: ESTIMATED GFR 55
[2019-04-10 16:06] LABS: AGAP 34; ALB/GLOB RATIO 1.2; ALBUMIN 4.1 g/dL (3.5-5.0); ALKALINE PHOSPHATASE 238 U/L (32-104); AMYLASE 54 U/L (20-200); BUN 10 mg/dL (8-22); CALCIUM 9.9 mg/dL (8.8-10.2); CHLORIDE 93 mmol/L (98-107); CK PROFILE 55 U/L (24-173); COSMO 274; CREATININE 1.2 mg/dL (0.5-0.9); GLUCOSE 160 mg/dL (70-104); GOT 45 U/L (10-30); GPT 53 U/L (10-36); LIPASE 24 U/L (13-60); MAGNESIUM 1.9 mg/dL (1.5-2.7); PHOSPHORUS 3.1 mg/dL (2.7-4.5); POTASSIUM 4.1 mmol/L (3.5-5.1); SODIUM 136 mmol/L (136-145); TCO2 9 mmol/L (25-35); TOTAL BILIRUBIN 0.28 mg/dL (0.20-1.00); TOTAL PROTEIN 7.5 g/dL (6.3-8.3)
[2019-04-10 16:14] LABS: ALLEN TEST NO; BE -11.1 mmoll (-3.0-3.0); BLOOD TYPE ARTERIAL; HCO3-(ACT) 16.3 mmoll (20.0-26.0); O2(CT) 17.5 mL/dL (15.0-23.0); O2HB 96.9 % (95.0-99.0); PCO2(98.6) 20 mmHg (35-45); PO2(98.6) 115 mmHg (60-100); SAMPLE BLOOD; SAO2 99.1 % (95.0-100.0); THB 12.7 g/dL (11.5-17.4); pH(98.6) 7.38 (7.35-7.45)
[2019-04-10 16:15] LABS: MODALITY ROOM AIR
[2019-04-10] MEDS ORDERED: ZOSYN 3.375 GM in NS 50 ML IV ONE (16:23)
[2019-04-10 16:29] LABS: URINE SOURCE CLEAN CATCH
[2019-04-10 16:37] LABS: ACETONE SERUM LARGE (NEGATIVE)
[2019-04-10 16:39] LABS: BILIRUBIN URINE SMALL (NEGATIVE); COLOR YELLOW; GLUCOSE URINE >1000 mg/dL (NEGATIVE); TURBIDITY URINE CLEAR (CLEAR)
[2019-04-10 16:40] LABS: BLOOD URINE TRACE (NEGATIVE); KETONE URINE >150 mg/dL (NEGATIVE); LEUKOCYTES URINE NEGATIVE (NEGATIVE); NITRITE URINE NEGATIVE (NEGATIVE); PH URINE 5.5; PROTEIN URINE TRACE mg/dL (NEGATIVE); SP GRAVITY URINE 1.025; UROBILINOGEN URINE 2 mg/dL (NORMAL)
[2019-04-10 16:42] LABS: UR EPITHELIAL CELLS <10 /HPF (<10); URINE BACTERIA 2+ /HPF; URINE RBC <10 /HPF (<10); URINE WBC <10 /HPF (<10)
--- NOTE | 2019-04-10 17:02 | Diag Imaging Result Doc PS360 ---
EXAM: CHEST-1 VIEW 04/10/2019 HISTORY: SOB TECHNIQUE: PA chest COMMENT: There is no evidence of acute cardiac or pulmonary disease. Compared to 09/20/2018 there has been no significant change in the appearance the chest. IMPRESSION: No evidence of acute disease. Electronically signed by Gerardo Starr 04/10/2019 5:00 PM
--- NOTE | 2019-04-10 17:23 | Diag Imaging Result Doc PS360 ---
EXAM: CT ABD/PELVIS W/IV CONT ONLY 04/10/2019 HISTORY: abd pain TECHNIQUE: This exam was performed using automated exposure control, adjustment of mA or kV according to patient size, and/or use of iterative reconstruction technique. COMMENT: There are no previous studies available for comparison. The visualized portions of the chest are unremarkable. The distal esophagus is somewhat thickened in appearance. The liver is hypodense suggesting fatty change, and it is enlarged. There are some apparent stones in the gallbladder. The kidneys are without evidence of hydronephrosis or mass. The spleen is not enlarged. The adrenal glands are not enlarged. The pancreas is unremarkable. There is some stool in the colon without dilatation. The small bowel is not distended. The aorta is not distended and there is no evidence of significant adenopathy. Pelvis: There is no evidence of free fluid. There are multiple small cysts in the ovaries, the largest of which measures 12 mm in diameter. The appendix is not clearly identifiable however there is some possible dilatation of the base of the appendix to over 11 mm. The possibility of appendicitis cannot be entirely excluded. There is a bone island in the right ischium. There is no evidence of acute bony abnormality. IMPRESSION: 1. Hepatic steatosis and hepatomegaly. 2. Cholelithiasis. 3. Ovarian cysts. 4. Questionable appendicitis. Electronically signed by Gerardo Starr 04/10/2019 5:21 PM
[2019-04-10 17:58] LABS: UR AMPHETAMINES QUAL NONE DETECTED (NONE DETECT); UR BARBITUATES QUAL NONE DETECTED (NONE DETECT); UR BENZODIAZEPIN QUAL NONE DETECTED (NONE DETECT); UR CANNABINOIDS QUAL NONE DETECTED (NONE DETECT); UR COCAINE QUAL NONE DETECTED (NONE DETECT); UR METHADONE QUAL NONE DETECTED (NONE DETECT); UR OPIATES QUAL NONE DETECTED (NONE DETECT); UR OXYCODONE QUAL NONE DETECTED (NONE DETECT); UR PCP QUAL NONE DETECTED (NONE DETECT)
[2019-04-10 18:02] LABS: HEMOGLOBIN A1C 10.2 % (4.8-6.0)
[2019-04-10] MEDS ORDERED: D50W SYRINGE IV PRN (18:02)
[2019-04-10] MEDS ORDERED: HUMULIN R IV ONE (18:02)
[2019-04-10] MEDS ORDERED: HUMULIN R 100 UNIT in NS 100 ML IV SCH (18:15)
[2019-04-10] MEDS ORDERED: SODIUM CHLORIDE 0.9% INJ SCH (18:17)
--- NOTE | 2019-04-10 18:57 | HISTORY AND PHYSICAL ---
CHIEF COMPLAINT: Nausea and vomiting, elevated blood sugars. HISTORY OF PRESENT ILLNESS: This is a 23-year-old, female, with past medical history of diabetes mellitus type 1 and endometriosis, who presented to the emergency department complaining of not feeling well. Apparently, she was feeling nauseated and short of breath for the last 2 days. She was not eating or drinking okay. She was also complaining of left upper quadrant pain that was coming and going. She did not report any fever, just mild cough when she noticed these epigastric pain. Her last menstrual period was approximately 1 month ago, but her cycles are not regular because of endometriosis. She started vomiting last night. She usually uses her Toujeo 22 units at night. Because she was checking her blood sugars and there had been high, she decided to use 11 more units today at 4:30 a.m. as recommended by her seed production field supervisor. Along today this morning, she was using Humalog because her glucometer continued to read high, and because of that apparently, she decided to come to the emergency department. PAST MEDICAL HISTORY: 1. Diabetes mellitus type 1. Patient sees Dr. Mere Andrea in [place], [place], who is her seed production field supervisor. 2. Endometriosis. PAST SURGICAL HISTORY: Laparoscopic surgery for the endometriosis, wisdom teeth removed. As per patient, it has been documented in a previous H P that she did not have any vaginal hysterectomy. SOCIAL HISTORY: Patient does not smoke. She rarely uses alcohol. She denies using any illicit drugs. Patient lives with parents. FAMILY HISTORY: Mother has diabetes mellitus type 1. Father also has hypercholesterolemia. ALLERGIES: Patient is not allergic to anything. REVIEW OF SYSTEMS: Patient denies any fever or chills, any rashes or joint pain. PHYSICAL EXAMINATION: VITAL SIGNS: Temperature 97.6 degrees, heart rate 138, respiratory rate 40, blood pressure 120/84, O2 saturation 99% on room air. GENERAL: This is a 23-year-old, female, lying in bed, in no acute distress. CARDIOVASCULAR: S1, S2 heard. No murmurs, gallops, or rubs. Regular rate and rhythm. Tachycardic. HEENT: Head is normocephalic, atraumatic. Mucous membranes dry. Pupils equal, round, reactive to light and accommodation. NECK: No JVD noted. No carotid bruits. No lymphadenopathy. No thyromegaly. RESPIRATORY: Clear bilaterally to auscultation. No work of breathing or using accessory muscles. ABDOMEN: Soft, nontender to palpation. Bowel sounds present. No organomegaly. EXTREMITIES: No clubbing, cyanosis, or edema. Peripheral pulses present in both legs. NEUROLOGICAL: The patient is alert and oriented x3. Moves 4 extremities. LABORATORY AND DIAGNOSTIC DATA: CBC is unremarkable. ABG shows pH of 7.38, with PCO of 220, PO2 of 115, with lactate on the ABG of 8.5. BMP remarkable for creatinine 1.2, with anion gap 34, bicarbonate of 9, glucose 260. AST 45, ALT 53. Lactate bone venous samples 9.8. I do not see any signs of UTI in the urine and acetone level is large. CT of the abdomen and pelvis showed hepatic steatosis and hepatomegaly with cholelithiasis, ovarian cyst, questionable appendicitis. ASSESSMENT: 1. Diabetic ketoacidosis. 2. Lactic acidosis. 3. Intractable nausea and vomiting. 4. Uncontrolled diabetes mellitus type 2. PLAN: At this point, patient is going to be admitted to the hospital for diabetic ketoacidosis. Her labs show lactate of 8.5 and also acetone level is high, and she used some Humalog before coming here. So, I think at least the metabolic acidosis can explain for some degree of diabetic ketoacidosis and starvation ketosis as well. In that regard, what I am going to do is start her on insulin drip per protocol. Considering that her blood sugar has been a little bit low of 160, we can start using D5 normal saline 100 mL/h, and will continue checking BMP every 4 hours. We will check also lactate at the same time. CT of the abdomen shows hepatic steatosis, hepatomegaly, and cholelithiasis. Just to rule out any possible cholecystitis, which in the physical exam it does not look like, I will do an abdominal ultrasound. Because of shortness of breath that could be related purely to these DKA, I prefer to go ahead and check a CT of the thorax without contrast and we will go from there. We will continue to monitor this patient closely. cc: Jacoby Morrow MD
[2019-04-10] MEDS: ZOFRAN IV PRN (19:11)
[2019-04-10] MEDS: POTASSIUM CHLORIDE 10 MEQ in D5 NS 1,000 ML IV PRN (19:13)
[2019-04-10 19:34] LABS: AGAP 32; BUN 9 mg/dL (8-22); CALCIUM 8.5 mg/dL (8.8-10.2); CHLORIDE 95 mmol/L (98-107); COSMO 292; CREATININE 0.9 mg/dL (0.5-0.9); ESTIMATED GFR > 60; MAGNESIUM 1.8 mg/dL (1.5-2.7); PHOSPHORUS 2.4 mg/dL (2.7-4.5); POTASSIUM 4.5 mmol/L (3.5-5.1); SODIUM 138 mmol/L (136-145); TCO2 11 mmol/L (25-35)
[2019-04-10 19:35] LABS: GLUCOSE 419 mg/dL (70-104)
[2019-04-10] MEDS: PROTONIX IV SCH (21:20)
[2019-04-10] MEDS: LOVENOX SUBQ SCH (21:20)
[2019-04-10] MEDS ORDERED: ATIVAN IV ONE (21:33)
[2019-04-10 21:58] LABS: AGAP 32; BUN 8 mg/dL (8-22); CALCIUM 8.1 mg/dL (8.8-10.2); CHLORIDE 100 mmol/L (98-107); COSMO 286; CREATININE 1.1 mg/dL (0.5-0.9); ESTIMATED GFR > 60; GLUCOSE 256 mg/dL (70-104); MAGNESIUM 1.9 mg/dL (1.5-2.7); POTASSIUM 4.1 mmol/L (3.5-5.1); SODIUM 140 mmol/L (136-145); TCO2 8 mmol/L (25-35)
[2019-04-11 03:05] LABS: AGAP 27; BUN 7 mg/dL (8-22); CALCIUM 7.7 mg/dL (8.8-10.2); CHLORIDE 94 mmol/L (98-107); COSMO 283; CREATININE 0.8 mg/dL (0.5-0.9); ESTIMATED GFR > 60; MAGNESIUM 1.8 mg/dL (1.5-2.7); POTASSIUM 5.1 mmol/L (3.5-5.1); SODIUM 129 mmol/L (136-145); TCO2 8 mmol/L (25-35)
[2019-04-11 03:06] LABS: GLUCOSE 577 mg/dL (70-104)
[2019-04-11] MEDS: NS 1,000 ML IV SCH ×3 (04:08→23:09)
--- NOTE | 2019-04-11 04:27 | GENERAL SURGERY CONSULTATION ---
DATE: 04/10/2019 CHIEF COMPLAINT: nausea and abdominal pain HISTORY OF PRESENT ILLNESS: This is a 23-year-old female with a history of brittle diabetes, longstanding type 1, with DKA recently in May. She presented with vague abdominal discomfort, extreme thirst, polyuria and generalized weakness, and was found to have a metabolic acidosis consistent with DKA. A CT scan was obtained apparently to work up the vague GI complaints that showed a not clearly visualized appendix and some ovarian cysts. She did have a test that was negative in the ER as well. She has been admitted to the hospitalist for management of DKA. She denies any chronic GI complaints. PAST MEDICAL HISTORY: Type 1 diabetes. PAST SURGICAL HISTORY: Diagnostic laparoscopy for endometriosis, wisdom teeth. SOCIAL HISTORY: She works as an EMT. No smoking tobacco, alcohol or drugs. FAMILY HISTORY: Reviewed and noncontributory. REVIEW OF SYSTEMS: Ten-point review of systems negative other than HPI. PHYSICAL EXAMINATION: She is tachycardic with pulse in the 120s to 130s, afebrile, oxygen saturation 99%.General: She is alert, in no acute distress. HEENT: No scleral icterus. No cervical mass. Cardiovascular: Normal rate. Pulmonary: No increased work of breathing, although she is slightly tachypneic. Abdomen is soft, nontender, nondistended, with no peritonitis. Integument is warm and dry. Psychiatric: Appropriate affect. Neurologic: No gross deficits. Lymphatic: No lower extremity edema. LABORATORY DATA: White count is 8, hematocrit 42. Her base deficit is 11.1 with pH 7.38. She is hyperventilating, with CO2 of 20. Creatinine 0.9. Her bicarbonate is 11. Glucose has been as high as 419. Troponins are negative. LFTs are mildly elevated. Lactate is 9.8. Urinalysis does show some bilirubins and acetone. UDS is negative. DIAGNOSTIC DATA: CT scan is reviewed. There is no stranding around the appendix. The base is mildly dilated, but the extent of the appendix is not significantly dilated or identified. ASSESSMENT AND PLAN: This is a 23-year-old female with diabetic ketoacidosis. I do not have any clinical or radiographic suspicion for acute appendicitis. She is on Zosyn per the protocol. We will continue this and monitor her going forward, with serial exams. If her exam worsens we will consider appendectomy, but otherwise will need management of her diabetic ketoacidosis. cc: Shynane Barnard MD MTDD
[2019-04-11 07:57] LABS: BASO# 0.04 X1000 (0.0-0.2); BASO% 0.4 % (0.0-0.8); EOS# 0.42 X1000 (0.0-0.7); EOS% 4.5 % (0.0-10.0); HEMATOCRIT 33.1 % (37.0-47.0); HEMOGLOBIN 11.1 g/dL (12.0-16.0); IMM GRAN# 0.02 X1000 (0.0-0.04); IMM GRAN% 0.2 % (0.0-0.5); LYMPH# 3.71 X1000 (1.2-3.4); LYMPH% 39.4 % (20.5-51.1); MCH 31.1 PG (27-31); MCHC 33.5 g/dL (33-37); MCV 92.7 FL (81-99); MONO# 0.75 X1000 (0.11-0.59); MPV 10.6 FL (7.4-10.4); NEUT# 4.48 X1000 (1.4-6.5); NEUT% 47.5 % (42.2-75.2); PLT 315 X1000 (130-400); RBC 3.57 XMIL (4.2-5.4); RDW 13.7 % (11.5-14.5); WBC 9.42 X1000 (4.8-10.8)
[2019-04-11 07:58] LABS: AGAP 17; BUN 5 mg/dL (8-22); CALCIUM 7.6 mg/dL (8.8-10.2); CHLORIDE 101 mmol/L (98-107); COSMO 269; CREATININE 0.7 mg/dL (0.5-0.9); ESTIMATED GFR > 60; GLUCOSE 198 mg/dL (70-104); MAGNESIUM 1.8 mg/dL (1.5-2.7); POTASSIUM 4.1 mmol/L (3.5-5.1); SODIUM 133 mmol/L (136-145); TCO2 15 mmol/L (25-35)
[2019-04-11] MEDS: DEXTROAMP-AMPHET ER 30 MG CAP PO SCH (10:36)
[2019-04-11] MEDS: NEUTRA-PHOS PO SCH ×4 (10:39→20:47)
[2019-04-11 11:58] LABS: CHLORIDE 101 mmol/L (98-107); ESTIMATED GFR > 60; SODIUM 134 mmol/L (136-145); TCO2 13 mmol/L (25-35)
[2019-04-11 11:59] LABS: AGAP 20; BUN 5 mg/dL (8-22); COSMO 268; CREATININE 0.8 mg/dL (0.5-0.9); GLUCOSE 149 mg/dL (70-104); MAGNESIUM 1.7 mg/dL (1.5-2.7)
--- NOTE | 2019-04-11 12:52 | PROGRESS NOTE ---
DATE: 04/11/2019 SUBJECTIVE: Patient is very sleepy this morning, but she denies any complaints or any abdominal pain, nausea or vomiting. OBJECTIVE: Vital Signs: Temperature 98 degrees, heart rate 107 respiratory rate 20, blood pressure 103/50, and O2 saturation 100% on room air. General: This is a 23-year-old female lying in bed in no acute distress. Cardiovascular: S1, S2 heard. No murmurs, gallops, or rubs. Regular rate and rhythm. Respiratory: Clear bilaterally to auscultation. No work of breathing or using accessory muscles. Abdomen: Soft. Nontender to palpation. Bowel sounds present. No organomegaly. Extremities: No clubbing, cyanosis, or edema. Peripheral pulses present in both legs. Neurological: Patient is alert and oriented x3. Moves all 4 extremities. LABORATORY DATA: White cell count 9.42, hemoglobin 11.1, hematocrit 33.1, and platelets 315,000. Sodium 133. Anion gap 17 with bicarbonate of 15. Glucose 198. Phosphorus 1.7. Magnesium 1.8. ASSESSMENT AND PLAN: 1. Diabetic ketoacidosis. 2. Lactic acidosis. 3. Intractable nausea and vomiting. 4. Uncontrolled diabetes mellitus type 1. PLAN: 1. At this point, patient is on DKA protocol. Her anion gap is closing, and the bicarbonate is going up. I think at this point we will continue to provide this insulin infusion to this patient. We will check lactate as well. As we mentioned on our admission note, we do not know exactly where this lactate was coming from. In any case, we will continue to check labs. Clinically, this patient is stable. There was a concern for possible appendicitis, but patient has been evaluated by Dr. Barnard, and he does not think she has any appendicitis. In any case, we will continue to monitor this patient closely. cc: Jacoby Morrow MD [facility]PITALClaudia
--- NOTE | 2019-04-11 13:21 | Diag Imaging Result Doc PS360 ---
EXAM: US ABDOMEN-COMPLETE 04/11/2019 HISTORY: cholelithiasis, lactic acidosis TECHNIQUE: Abdominal ultrasound COMMENT: The liver is hyperechoic. The visualized portions of the aorta and inferior vena cava are within normal limits. The gallbladder contains multiple small stones but is nontender. There is no evidence of para cholecystic fluid. The common bile duct measures less than 3 mm. There is antegrade flow in the portal vein. The kidneys are without evidence of hydronephrosis or mass. The pancreatic head and body are normal in appearance. There are no abnormal fluid collections. The spleen is not enlarged. IMPRESSION: Cholelithiasis. Hepatic steatosis. Electronically signed by Gerardo Starr 04/11/2019 1:19 PM
[2019-04-11] MEDS: POTASSIUM CHLORIDE 10 MEQ in D5 NS 1,000 ML IV PRN (14:33)
[2019-04-11] MEDS: ZOFRAN IV PRN (14:33)
[2019-04-11 16:13] LABS: ESTIMATED GFR > 60
[2019-04-11 16:16] LABS: AGAP 16; BUN 5 mg/dL (8-22); CALCIUM 7.6 mg/dL (8.8-10.2); CHLORIDE 99 mmol/L (98-107); COSMO 265; CREATININE 0.7 mg/dL (0.5-0.9); GLUCOSE 215 mg/dL (70-104); MAGNESIUM 1.8 mg/dL (1.5-2.7); POTASSIUM 3.8 mmol/L (3.5-5.1); SODIUM 130 mmol/L (136-145); TCO2 15 mmol/L (25-35)
[2019-04-11] MEDS ORDERED: POTASSIUM CHLORIDE 40 MEQ in NS 250 ML IV PRN (16:48)
[2019-04-11] MEDS ORDERED: SODIUM BICARBONATE 8.4% 100 MEQ in STERILE WATER INJ. 500 ML IV PRN (16:48)
[2019-04-11] MEDS ORDERED: SODIUM PHOSPHATE 30 MMOL in D5W 250 ML IV PRN (16:48)
[2019-04-11] MEDS ORDERED: MAGNESIUM SULFATE 2 GM/S.W.I. 2 GM/50 ML IVPB IV PRN (16:48)
[2019-04-11] MEDS ORDERED: POTASSIUM CHLORIDE 20 MEQ in NS 100 ML IV PRN (16:48)
[2019-04-11] MEDS: POTASSIUM CHLORIDE 10% LIQUID PO PRN (17:44)
[2019-04-11] MEDS: XANAX PO PRN (18:29)
[2019-04-11 19:19] LABS: AGAP 16; BUN 5 mg/dL (8-22); CALCIUM 7.8 mg/dL (8.8-10.2); CHLORIDE 103 mmol/L (98-107); COSMO 271; CREATININE 0.6 mg/dL (0.5-0.9); ESTIMATED GFR > 60; GLUCOSE 123 mg/dL (70-104); MAGNESIUM 1.7 mg/dL (1.5-2.7); POTASSIUM 3.6 mmol/L (3.5-5.1); SODIUM 136 mmol/L (136-145); TCO2 17 mmol/L (25-35)
[2019-04-11] MEDS: PROTONIX IV SCH (20:47)
[2019-04-11] MEDS: LOVENOX SUBQ SCH (20:47)
--- NOTE | 2019-04-11 21:32 | GENERAL SURGERY PROGRESS NOTE ---
DATE: 04/11/2019 SUBJECTIVE: Feels better, more alert. No abdominal pain. No fevers. OBJECTIVE: Vital Signs: Heart rate is lower now in the low 100s, blood pressure 118/79, oxygen saturation 100%. General: She is alert. Cardiovascular: Sinus tachycardia. Pulmonary: No increased work of breathing. Abdomen: Soft, nontender, nondistended. White count is 9, hematocrit is 33. Creatinine is 0.8. Her CO2 is up to 13. Her glucose now in the 100s. She had an abdominal ultrasound that showed cholelithiasis, but no inflammatory changes. ASSESSMENT AND PLAN: This is a 23-year-old female in diabetic ketoacidosis. I do not see any clinical or radiographic evidence of appendicitis. We will continue to follow her closely, but no plans for surgical intervention. cc: Shyanne Barnard MD
[2019-04-11 21:40] LABS: AGAP 15; BUN 4 mg/dL (8-22); CALCIUM 7.7 mg/dL (8.8-10.2); CHLORIDE 104 mmol/L (98-107); COSMO 272; CREATININE 0.8 mg/dL (0.5-0.9); ESTIMATED GFR > 60; GLUCOSE 151 mg/dL (70-104); MAGNESIUM 1.7 mg/dL (1.5-2.7); PHOSPHORUS 2.1 mg/dL (2.7-4.5); POTASSIUM 3.9 mmol/L (3.5-5.1); SODIUM 136 mmol/L (136-145); TCO2 17 mmol/L (25-35)
[2019-04-11 23:21] LABS: AGAP 14; BUN 5 mg/dL (8-22); CALCIUM 7.6 mg/dL (8.8-10.2); CHLORIDE 103 mmol/L (98-107); COSMO 272; CREATININE 0.6 mg/dL (0.5-0.9); ESTIMATED GFR > 60; GLUCOSE 187 mg/dL (70-104); MAGNESIUM 1.9 mg/dL (1.5-2.7); POTASSIUM 4.3 mmol/L (3.5-5.1); SODIUM 135 mmol/L (136-145); TCO2 18 mmol/L (25-35)
[2019-04-12] MEDS: XANAX PO PRN ×3 (00:13→18:01)
[2019-04-12] MEDS: POTASSIUM CHLORIDE 10 MEQ in D5 NS 1,000 ML IV PRN (00:39)
[2019-04-12 02:51] LABS: ESTIMATED GFR > 60
[2019-04-12 02:56] LABS: AGAP 16; BUN 5 mg/dL (8-22); CALCIUM 7.6 mg/dL (8.8-10.2); CHLORIDE 104 mmol/L (98-107); COSMO 271; CREATININE 0.7 mg/dL (0.5-0.9); GLUCOSE 166 mg/dL (70-104); PHOSPHORUS 1.9 mg/dL (2.7-4.5); SODIUM 135 mmol/L (136-145); TCO2 15 mmol/L (25-35)
[2019-04-12] MEDS: POTASSIUM CHLORIDE 20% LIQUID PO PRN (04:17)
[2019-04-12] MEDS ORDERED: SODIUM PHOSPHATE 35 MMOL in NS 250 ML IV ONE (07:29)
[2019-04-12 07:57] LABS: BASO# 0.06 X1000 (0.0-0.2); BASO% 0.9 % (0.0-0.8); EOS% 8.7 % (0.0-10.0); HEMATOCRIT 33.7 % (37.0-47.0); HEMOGLOBIN 10.6 g/dL (12.0-16.0); LYMPH# 3.77 X1000 (1.2-3.4); LYMPH% 54.7 % (20.5-51.1); MCH 30.3 PG (27-31); MCHC 31.5 g/dL (33-37); MCV 96.3 FL (81-99); MONO# 0.69 X1000 (0.11-0.59); MPV 11.1 FL (7.4-10.4); NEUT# 1.77 X1000 (1.4-6.5); NEUT% 25.7 % (42.2-75.2); PLT 275 X1000 (130-400); RDW 14.3 % (11.5-14.5); WBC 6.89 X1000 (4.8-10.8)
[2019-04-12 08:13] LABS: AGAP 12; BUN 5 mg/dL (8-22); CALCIUM 7.9 mg/dL (8.8-10.2); CHLORIDE 108 mmol/L (98-107); COSMO 278; CREATININE 0.6 mg/dL (0.5-0.9); ESTIMATED GFR > 60; GLUCOSE 189 mg/dL (70-104); MAGNESIUM 2.2 mg/dL (1.5-2.7); POTASSIUM 4.4 mmol/L (3.5-5.1); SODIUM 138 mmol/L (136-145); TCO2 18 mmol/L (25-35)
[2019-04-12] MEDS: NEUTRA-PHOS PO SCH ×4 (08:36→21:06)
[2019-04-12] MEDS: POTASSIUM CHLORIDE 10% LIQUID PO PRN ×3 (08:36→21:18)
[2019-04-12] MEDS: DEXTROAMP-AMPHET ER 30 MG CAP PO SCH (08:37)
[2019-04-12] MEDS: NS 1,000 ML IV SCH (09:48)
[2019-04-12 10:20] LABS: ESTIMATED GFR > 60
[2019-04-12 10:23] LABS: AGAP 16; BUN 7 mg/dL (8-22); CALCIUM 8.1 mg/dL (8.8-10.2); CHLORIDE 109 mmol/L (98-107); COSMO 282; CREATININE 0.7 mg/dL (0.5-0.9); GLUCOSE 207 mg/dL (70-104); PHOSPHORUS 2.8 mg/dL (2.7-4.5); POTASSIUM 4.3 mmol/L (3.5-5.1); SODIUM 139 mmol/L (136-145); TCO2 14 mmol/L (25-35)
[2019-04-12] MEDS ORDERED: LEXAPRO PO SCH (10:30)
[2019-04-12] MEDS ORDERED: SODIUM BICARBONATE 8.4% 100 MEQ in D5W 1,000 ML IV SCH (10:30)
--- NOTE | 2019-04-12 11:05 | Diag Imaging Result Doc PS360 ---
CHEST-PORTABLE - 04/12/2019 INDICATION: abnormal exam COMPARISON: 04/10/2019 FINDINGS: There is trace linear atelectasis in the left upper lobe. Lung volumes are moderately low. The lungs are clear. Heart size is normal. No pneumothorax or pleural effusion. IMPRESSION: No acute disease. Electronically signed by Flako Dempsey 04/12/2019 11:03 AM
[2019-04-12] MEDS: SODIUM BICARBONATE 8.4% 100 MEQ in D5W 1,000 ML IV SCH ×2 (14:04→22:18)
--- NOTE | 2019-04-12 14:27 | PROGRESS NOTE ---
DATE: 04/12/2019 SUBJECTIVE: Patient reports feeling still some cough that is progressively getting worse. Denies any abdominal pain or nausea. OBJECTIVE: Vital Signs: Temperature 98.3 degrees, heart rate 96, respiratory 14, blood pressure 123/84, O2 saturation 96% on room air. General Examination: This is a 23-year-old female lying in bed, in no acute distress. Cardiovascular: S1, S2 heard. No murmurs, gallops, or rubs. Regular rate and rhythm. Respiratory: Clear bilaterally to auscultation. Minimal rhonchi in left pulmonary base. Patient is not using any accessory muscles or having work of breathing. Abdomen: Soft, nontender to palpation. Bowel sounds present. No organomegaly. Extremities: No clubbing, cyanosis, or edema. Peripheral pulses present in both legs. Neurological: Patient is alert and oriented x3. Moves 4 extremities. LABORATORY DATA: White cell count 6.89, hemoglobin 10.6, hematocrit 33.7, platelets 275,000. Normal BMP. The anion gap is 16 with bicarbonate 14, lactate 6.4. ASSESSMENT AND PLAN: 1. Diabetic ketoacidosis. 2. Lactic acidosis. 3. Intractable nausea and vomiting. 4. Uncontrolled diabetes mellitus type 2. 5. Anxiety disorder. 6. At this point, we will continue with the DKA protocol. I do not know why this patient continues to have still lactic acidosis. Because of persistent cough, we are going to check a CT of the chest to see there is any infection going on that has triggered this problem. As we mentioned before, we will continue with DKA protocol with insulin drip. We will continue checking BMP with lactate as well. It is important to remark that at admission there was a concern for possible appendicitis but the patient has been followed by Dr. Barnard here in the hospital. No surgery. He thinks that he does not have any pathology that requires surgical approach. cc: Jacoby Morrow MD
[2019-04-12 15:09] LABS: AGAP 17; BUN 8 mg/dL (8-22); CALCIUM 8.2 mg/dL (8.8-10.2); CHLORIDE 103 mmol/L (98-107); COSMO 282; CREATININE 0.5 mg/dL (0.5-0.9); ESTIMATED GFR > 60; GLUCOSE 314 mg/dL (70-104); MAGNESIUM 1.9 mg/dL (1.5-2.7); PHOSPHORUS 3.5 mg/dL (2.7-4.5); POTASSIUM 5.2 mmol/L (3.5-5.1); SODIUM 136 mmol/L (136-145); TCO2 16 mmol/L (25-35)
[2019-04-12 17:34] LABS: AGAP 17; BUN 8 mg/dL (8-22); CHLORIDE 105 mmol/L (98-107); COSMO 281; CREATININE 0.6 mg/dL (0.5-0.9); ESTIMATED GFR > 60; GLUCOSE 122 mg/dL (70-104); MAGNESIUM 1.8 mg/dL (1.5-2.7); POTASSIUM 4.1 mmol/L (3.5-5.1); SODIUM 141 mmol/L (136-145); TCO2 19 mmol/L (25-35)
--- NOTE | 2019-04-12 17:53 | Diag Imaging Result Doc PS360 ---
CT THORAX W/CONTRAST - 04/12/2019 INDICATION: lactic acidosis COMPARISON: Chest x-ray from earlier today FINDINGS: There is no adenopathy. There is moderate fatty change of the liver. Heart and great vessels are normal. There is some faint infiltrate in the superior segments of the lower lobes bilaterally. There are trace pleural effusions. There is probably some interstitial pulmonary edema. Bones are intact and well mineralized. IMPRESSION: Trace bilateral infiltrates/pulmonary edema. Trace pleural effusions. Moderate hepatic steatosis. This exam was performed using automated exposure control, adjustment of mA or kV according to patient size, and/or use of iterative reconstruction technique Electronically signed by Flako Dempsey 04/12/2019 5:50 PM
[2019-04-12] MEDS: PROTONIX IV SCH (21:05)
[2019-04-12] MEDS: BIAXIN PO SCH (21:06)
[2019-04-12] MEDS: LOVENOX SUBQ SCH (21:06)
[2019-04-12 21:10] LABS: AGAP 15; BUN 7 mg/dL (8-22); CALCIUM 7.7 mg/dL (8.8-10.2); CHLORIDE 103 mmol/L (98-107); COSMO 273; CREATININE 0.7 mg/dL (0.5-0.9); ESTIMATED GFR > 60; GLUCOSE 158 mg/dL (70-104); MAGNESIUM 1.8 mg/dL (1.5-2.7); PHOSPHORUS 3.1 mg/dL (2.7-4.5); SODIUM 136 mmol/L (136-145); TCO2 18 mmol/L (25-35)
[2019-04-12] MEDS: DIFLUCAN PO SCH (21:57)
[2019-04-13] MEDS: ZOFRAN IV PRN ×2 (00:46→09:03)
[2019-04-13] MEDS: XANAX PO PRN ×3 (00:54→19:30)
[2019-04-13 02:00] LABS: AGAP 16; BUN 6 mg/dL (8-22); CALCIUM 7.9 mg/dL (8.8-10.2); CHLORIDE 101 mmol/L (98-107); COSMO 274; CREATININE 0.5 mg/dL (0.5-0.9); ESTIMATED GFR > 60; GLUCOSE 103 mg/dL (70-104); MAGNESIUM 1.8 mg/dL (1.5-2.7); PHOSPHORUS 2.6 mg/dL (2.7-4.5); POTASSIUM 4.5 mmol/L (3.5-5.1); SODIUM 138 mmol/L (136-145); TCO2 21 mmol/L (25-35)
[2019-04-13] MEDS: POTASSIUM CHLORIDE 20% LIQUID PO PRN (02:36)
[2019-04-13] MEDS ORDERED: TYLENOL PO PRN (04:24)
[2019-04-13 05:53] LABS: BASO# 0.05 X1000 (0.0-0.2); BASO% 0.9 % (0.0-0.8); EOS# 0.35 X1000 (0.0-0.7); HEMATOCRIT 32.3 % (37.0-47.0); HEMOGLOBIN 10.4 g/dL (12.0-16.0); LYMPH% 56.7 % (20.5-51.1); MCH 30.7 PG (27-31); MCHC 32.2 g/dL (33-37); MCV 95.3 FL (81-99); MONO# 0.38 X1000 (0.11-0.59); MONO% 6.5 % (1.7-9.3); MPV 11.1 FL (7.4-10.4); NEUT# 1.74 X1000 (1.4-6.5); NEUT% 29.9 % (42.2-75.2); PLT 256 X1000 (130-400); RBC 3.39 XMIL (4.2-5.4); RDW 13.7 % (11.5-14.5); WBC 5.82 X1000 (4.8-10.8)
[2019-04-13 06:06] LABS: AGAP 15; BUN 5 mg/dL (8-22); CALCIUM 7.9 mg/dL (8.8-10.2); CHLORIDE 105 mmol/L (98-107); COSMO 279; CREATININE 0.6 mg/dL (0.5-0.9); ESTIMATED GFR > 60; GLUCOSE 107 mg/dL (70-104); MAGNESIUM 1.9 mg/dL (1.5-2.7); PHOSPHORUS 2.8 mg/dL (2.7-4.5); POTASSIUM 4.6 mmol/L (3.5-5.1); SODIUM 141 mmol/L (136-145); TCO2 21 mmol/L (25-35)
--- NOTE | 2019-04-13 06:49 | PULMONOLOGY CONSULTATION ---
DATE: 04/12/2019 REQUESTING PHYSICIAN: Dr. Cain. REASON FOR CONSULTATION: Persistent lactic acidosis. HISTORY OF PRESENT ILLNESS: Ms. Davalos is a 23-year-old female with a history of diabetes mellitus, history of steatohepatosis, who presented to the emergency room with elevated blood sugars. The patient had been ill for approximately 2 days associated with cough, nausea, nonspecific abdominal pain and vomiting. The patient had a combination of lactic acidosis and ketoacidosis. She was initiated on insulin drip and blood cultures were obtained. She had some nonspecific abdominal pain and she was evaluated by General Surgery for possible appendicitis on CT scan. She was evaluated by Surgery who felt that there were no indications of appendicitis. Abdominal ultrasound was performed which revealed cholelithiasis and hepatic steatosis. She continues to have an elevated lactic acid this morning at 7.3. PAST MEDICAL HISTORY: 1. Diabetes mellitus. 2. Steatohepatosis. 3. Endometriosis. 4. 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 5. Cataract disease. 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 She is . FAMILY HISTORY: Positive for type 2 diabetes mellitus and dyslipidemia. REVIEW OF SYSTEMS: Notable for cough, weakness, and the presenting symptoms identified in the HPI. PHYSICAL EXAMINATION: General: Reveals a healthy-appearing white female resting comfortably and in no distress. Vital Signs: BP 132/90, heart rate 95, respiratory rate 16, oxygen saturation 99% on room air. HEENT: Pupils are equal and reactive. Oropharynx appears clear. Neck: Supple. Chest: Reveals good air entry bilaterally without wheezing or rhonchi. Cardiac: Regular rate. Normal S1, normal S2. Abdomen: Soft and without hepatosplenomegaly. There is no abdominal tenderness. Extremities: Without edema. LABORATORIES: CT scan of the thorax reveals some mild nonspecific bilateral infiltrates. She has significant fatty liver. Electrolytes at 1359, sodium 136, potassium 5.2, chloride 103, bicarbonate 16, BUN 8, creatinine 0.5, glucose 314, plasma lactate 2.9. Serum test is negative. Hemoglobin A1c reveals poor control at 10.2. IMPRESSION: 23-year-old with 1. Atypical pneumonia. 2. Diabetic ketoacidosis. 3. Resolving lactic acidosis. 4. Poorly controlled diabetes. 5. Steatohepatosis. DISCUSSION: 23-year-old with problems outlined above. She reports she continues to improve. She is now asymptomatic except for a mild cough. She reports she is hungry and would like to eat. She also reports she has a yeast infection. RECOMMENDATIONS: 1. We will initiate a macrolide for atypical pneumonia. 2. Initiate Diflucan for a yeast infection. 3. Interrupt Lexapro due to interaction with Diflucan. 4. Encourage patient to devise a way to better control her blood sugars. cc: Kristian Sebastian MD
[2019-04-13] MEDS: NEUTRA-PHOS PO SCH (08:43)
[2019-04-13] MEDS: POTASSIUM CHLORIDE 10% LIQUID PO PRN (08:43)
[2019-04-13] MEDS: BIAXIN PO SCH ×2 (08:43→20:29)
[2019-04-13] MEDS: DIFLUCAN PO SCH (08:44)
[2019-04-13] MEDS: DEXTROAMP-AMPHET ER 30 MG CAP PO SCH (08:44)
[2019-04-13] MEDS: SODIUM BICARBONATE 8.4% 100 MEQ in D5W 1,000 ML IV SCH (10:39)
[2019-04-13 10:53] LABS: AGAP 15; BUN 5 mg/dL (8-22); CHLORIDE 99 mmol/L (98-107); COSMO 278; CREATININE 0.5 mg/dL (0.5-0.9); ESTIMATED GFR > 60; GLUCOSE 185 mg/dL (70-104); MAGNESIUM 1.7 mg/dL (1.5-2.7); POTASSIUM 4.4 mmol/L (3.5-5.1); SODIUM 138 mmol/L (136-145); TCO2 24 mmol/L (25-35)
[2019-04-13] MEDS ORDERED: HUMALOG SUBQ SCH (11:45)
[2019-04-13] MEDS ORDERED: TOUJEO SOLOSTAR SUBQ SCH (11:45)
[2019-04-13] MEDS ORDERED: PATIENT'S OWN MED SUBQ SCH (12:07)
[2019-04-13] MEDS: HUMALOG SUBQ SCH ×3 (13:42→20:28)
[2019-04-13 14:46] LABS: AGAP 19; BUN 5 mg/dL (8-22); CALCIUM 8.3 mg/dL (8.8-10.2); CHLORIDE 99 mmol/L (98-107); COSMO 279; CREATININE 0.8 mg/dL (0.5-0.9); ESTIMATED GFR > 60; GLUCOSE 148 mg/dL (70-104); MAGNESIUM 1.6 mg/dL (1.5-2.7); PHOSPHORUS 3.2 mg/dL (2.7-4.5); POTASSIUM 4.3 mmol/L (3.5-5.1); SODIUM 140 mmol/L (136-145); TCO2 22 mmol/L (25-35)
--- NOTE | 2019-04-13 15:02 | PROGRESS NOTE ---
DATE: 04/13/2019 INTERVAL HISTORY: Her blood sugars were well controlled. Chest CT had detected bilateral alveolar opacities with suspicion of bronchopneumonia. SUBJECTIVE: The patient is feeling better. She is hungry. She wants to eat. The patient's mother is at bedside. I discussed with them about management of type 1 diabetes mellitus pathogenesis and answered all of their questions. VITALS: Temperature 98.1 degrees, pulse 103, respiratory 18, blood pressure 120/87, saturating 99% room air. PHYSICAL EXAMINATION: General: Does not appear in acute distress. Oral cavity is moist. Air entry bilaterally equal. No wheeze, rhonchi, crackles. S1, S2 normal, no murmur or gallop. Abdomen is soft, nontender. No lower extremity edema. She is alert oriented times x3 nonfocal examination. LABS: Suggestive of normocytic anemia, normal platelet count, normal kidney function. Blood sugars are within acceptable range though her hemoglobin A1c was 10.2, her bicarbonate has improved to 24 now and anion gap is stable at 15. Microbiology no positive data. IMAGING: No new imaging except chest CT which had bilateral infiltrate, pulmonary edema, trace pleural effusions. ASSESSMENT AND PLAN: 1. Hyperglycemia, lactic acidosis in the setting of known history of insulin- dependent diabetes mellitus type 1. Continue diabetic diet, stop DKA protocol and insulin drip. Start patient on her home long-acting as well as short-acting regimen. I again counseled her about being medically compliant and outpatient Endocrinology followup . 2. Lactic acidosis. Her recent lactate yesterday was already improving. Her bicarbonate has pretty much normalized. 3. Others. Her intractable nausea and vomiting is currently in acceptable range. I will continue p.r.n. medications for nausea and vomiting. I advised her possibly outpatient gastric emptying study. I will continue alprazolam as needed for her anxiety. Clarithromycin has been added for atypical community acquired bacterial pneumonia. 4. Disposition. My plan is to watch patient for 24 hours off insulin drip. Based on that I will consider discharging her in future. Plan of care discussed with patient and her mother at bedside. Their questions have been answered. cc: Bernardo Forbes MD MTDD
[2019-04-13 17:44] LABS: AGAP 14; BUN 5 mg/dL (8-22); CALCIUM 8.4 mg/dL (8.8-10.2); CHLORIDE 96 mmol/L (98-107); COSMO 272; CREATININE 0.6 mg/dL (0.5-0.9); ESTIMATED GFR > 60; GLUCOSE 124 mg/dL (70-104); MAGNESIUM 1.7 mg/dL (1.5-2.7); PHOSPHORUS 2.6 mg/dL (2.7-4.5); POTASSIUM 4.5 mmol/L (3.5-5.1); SODIUM 137 mmol/L (136-145); TCO2 27 mmol/L (25-35)
[2019-04-13] MEDS: LOVENOX SUBQ SCH (20:29)
--- NOTE | 2019-04-13 21:29 | PULMONOLOGY PROGRESS NOTE ---
DATE: 04/13/2019 SUBJECTIVE: The patient is sleeping but arousable. Her mother is at the bedside. She is tolerating p.o. intake. OBJECTIVE: Vital Signs: The patient has been afebrile for the last 24 hours. Blood pressure 136/95, heart rate 93, respiratory rate 18, oxygen saturation 100% on room air. HEENT: Pupils are equal and reactive. Oropharynx appears clear,. Neck: Supple. Chest: Reveals good air entry without wheezing or rhonchi. cardiac exam: S1-S2. Abdomen: Soft. Extremities: Without edema. LABORATORIES: Sodium 140, potassium 4.3, chloride 99, bicarbonate 22, BUN 5, creatinine 0.8, glucose 148. White blood count 5.82, hemoglobin 10.4, platelet count 256,000. IMPRESSION: 23-year-old with: 1. Type 1 diabetes. 2. Diabetic ketoacidosis. 3. Lactic acidosis which has resolved. 4. Poorly controlled diabetes with a hemoglobin A1c greater than 10. 5. Atypical pneumonia. PLAN: 1. Discontinue bicarbonate fluids. 2. Continue Diflucan for vaginal yeast infection. 3. Restart Lexapro when Diflucan has been discontinued. 4. Complete course of macrolide antibiotics for atypical pneumonia. 5. Anticipate discharge home tomorrow if she continues to improve. cc: Kristian Sebastian MD
[2019-04-14 06:36] LABS: AGAP 12; BUN 9 mg/dL (8-22); CALCIUM 8.4 mg/dL (8.8-10.2); CHLORIDE 98 mmol/L (98-107); COSMO 276; CREATININE 0.6 mg/dL (0.5-0.9); ESTIMATED GFR > 60; GLUCOSE 125 mg/dL (70-104); SODIUM 138 mmol/L (136-145); TCO2 28 mmol/L (25-35)
[2019-04-14 07:42] VITALS: BP 127/95
[2019-04-14] MEDS: DIFLUCAN PO SCH (10:09)
[2019-04-14] MEDS: BIAXIN PO SCH (10:09)
[2019-04-14] MEDS: DEXTROAMP-AMPHET ER 30 MG CAP PO SCH (10:17)
[2019-04-14] MEDS: HUMALOG SUBQ SCH (10:18)
--- NOTE | 2019-04-14 16:03 | DISCHARGE SUMMARY ---
ADMISSION DATE: 04/10/2019 DISCHARGE DATE: 04/14/2019 DISCHARGE DISPOSITION: Home with family. DISCHARGE CONDITION: Hemodynamically stable. Alert oriented x3. Eating her meals without any nausea, vomiting. Blood sugars are well controlled. DISCHARGE DIAGNOSES: 1. Lactic acidosis. 2. Hyperglycemia, uncontrolled diabetes mellitus type 1, acidosis and low bicarbonate with normal pH. 3. Intractable nausea and vomiting because of uncontrolled hyperglycemia and lactic acidosis. 4. Atypical community-acquired pneumonia. 5. Vaginal candidiasis. OTHER DIAGNOSES: 1. History of diabetes mellitus type 1 diagnosed at the age of 4 years, followed up by Endocrinology. 2. History of endometriosis. DISCHARGE MEDICATIONS: 1. Insulin glargine, Toujeo SoloSTAR 22 units at nighttime. 2. Adderall extended release 30 mg capsule 1 tablet daily. 3. Amitriptyline 25 mg daily. 4. Insulin lispro 3 times a day with meals sliding scale as per blood sugar levels as well as carbohydrate intake. 5. Spironolactone 25 mg daily She takes for Hypertension as per history given by her. 6. Norgestimate ethinyl estradiol 1 tablet daily. 7. Clarithromycin 500 mg b.i.d., 8 tablets. VITALS: At the time of discharge, temperature 98.1 degrees, pulse 98, respiratory rate 18, blood pressure 127/95, saturating 96% on room air. PHYSICAL EXAMINATION: Oral cavity: Moist. Lungs: Air entry bilaterally equal. No wheeze, rhonchi, crackles. Cardiovascular: S1, S2 normal. No murmur or gallop. Abdomen: Soft, nontender. Extremities: No lower extremity edema. Neuro: She is alert, oriented x3. She is able to go to the bathroom without anyone's help. SIGNIFICANT LABS: During hospital admission and discharge: WBC 5.8, hemoglobin 10.4, platelet 256,000. ABG had pH of 7.38, PO2 of 115, pCO2 of 20, and lactate of 8.5 on room air. Creatinine on admission was 1.1; on discharge, it was 0.6. BUN on admission was 8; on discharge, it was 9. Her glucose on admission was as high as 577; at the time of discharge, it was 139. Her hemoglobin A1c is 10.2. Phosphorus on discharge was 2.6. Urinalysis had glucosuria, proteinuria; acetone levels were large. SIGNIFICANT MICROBIOLOGY: During hospital admission: Blood culture and urine culture did not have any growth. IMAGING: During hospital admission: Chest x-ray did not have any evidence of acute disease. Abdomen and pelvis CT had hepatic steatosis and hepatomegaly, cholelithiasis, ovarian cyst. There was questionable appendicitis; however, she did not have physical exam findings. Abdominal ultrasound had cholelithiasis, hepatic steatosis without any acute cholecystitis. Chest CT had bilateral infiltrate, pulmonary edema, trace pleural effusions, and moderate hepatic steatosis. HOSPITAL COURSE SUMMARY: Ms. Davalos is a 23-year-old lady with past medical history of type 1 diabetes mellitus, insulin dependent, who came in with chief complaints of nausea, vomiting, and elevated blood sugar of about 2 days' duration. She did have mild cough and epigastric abdominal pain. She has had a history of endometriosis and irregular cycles. The patient says that she has been trying to take her insulin regularly and eat her meals regularly, but her blood sugar did not come down, and it kept on showing very high. So she decided to come to the emergency room. In the emergency room, she was found to have clinical volume depletion, lactic acidosis with normal pH, hyperglycemia with blood sugars as high as more than 500, low bicarbonate. Considering her history of diabetes mellitus, she was started on diabetic ketoacidosis protocol and insulin drip. She was also aggressively rehydrated with intravenous fluids. During hospital admission, she did have fluctuating as well as persistent lactic acidosis of unclear etiology and required insulin drip for almost 72 hours. Later on her lactate had started trending down, and she was taken off insulin drip and was started on her home insulin glargine and sliding scale short-acting insulin protocol, which she tolerated well. At the time of discharge, she was discharged on oral clarithromycin as CT scan performed for her dry cough as well as persistent lactic acidosis had detected atypical community- acquired pneumonia. She was also advised to discuss with her regular doctor about discontinuing spironolactone which she has been taking for her endometriosis. More than 30 minutes were spent discharging this patient. All of her questions were satisfactorily answered. cc: Bernardo Forbes MD MTDD
== END 2019-04-14 10:58 | disposition home or self-care (01) | DRG 637 ==
LOC: SUPCPDRO → ED 14:39 → SUATTDRO 19:23 → EDIPHOLD 19:23 → 2N 20:52
PROVIDERS: ATTEND Internal Medicine